=== PATIENT | female | born 1935 | race Caucasian/White ===

== ENCOUNTER → 2019-12-09 11:06 | Outpatient (CLI) | payer MEDICARE, BC, SELFPAY ==
--- NOTE | ~2019-12-09 | MM_ITS ---
EXAMINATION: MM screening [facility] BI w jayant HISTORY: Screening mammogram TECHNIQUE: Craniocaudal and mediolateral oblique 3-D tomosynthesis images were obtained and synthetic 2-D images were generated. CAD analysis was submitted and interpreted. COMPARISON: 11/28/2018, 11/08/2018, 02/18/2016, 02/10/2016 BREAST PARENCHYMAL COMPOSITION: There are scattered areas of fibroglandular density. FINDINGS: There is no evidence of suspicious mass, calcification, or architectural distortion to sugg est malignancy in either breast. There has been no suspicious interval change. IMPRESSION: 1. No mammographic evidence of malignancy. 2. Recommend routine screening mammography in one year. BI-RADS Category 1: Negative Reviewed, dictated and finalized at location A. ES OPERATOR
== END ==
PROVIDERS: PCP Internal Medicine; Visit Provider Internal Medicine
DX: Z12.31 Encounter for screening mammogram for malignant neoplasm of breast (principal)
CPT/HCPCS: 77063; 77067

== ENCOUNTER 2020-07-08 07:55 | Outpatient (CLI) | payer MEDICARE, BC, SELFPAY ==
--- NOTE | ~2020-07-08 | CT_ITS ---
EXAMINATION: CT lumbar spine wo con DATE: 07/08/2020 09:05 INDICATION: Low back pain. TECHNIQUE: Computed tomography (CT) of the lumbar spine was performed without intravenous contrast. A utomated exposure control and iterative reconstruction technique were employed. The dose-length produ ct was 463.39 mGy-cm. COMPARISON: CT lumbar spine 09/13/2018 FINDINGS: There is 30 degrees dextroscoliosis of thoracolumbar spine. Vertebral body heights are norm al. There is moderately decreased disc height at T12-L1, severely decreased disc height at L1-L2, L2- L3, and L3-L4, moderately decreased disc height at L4-L5, and severely decreased disc height at L5-S1 . The following disc levels are specifically discussed: L1-L2: The disc is bulging. There is severe bilateral facet joint osteoarthritis. There is mild bilat eral neural foraminal stenosis. There is mild central canal stenosis. L2-L3: The disc is bulging. There is severe right and mild left facet joint osteoarthritis. There is mild right and moderate left neural foraminal stenosis. There is mild central canal stenosis. L3-L4: The disc is bulging. There is severe right and mild left facet joint osteoarthritis. There is mild bilateral neural foraminal stenosis. There is mild central canal stenosis. L4-L5: The disc is bulging. There is severe bilateral facet joint osteoarthritis. There is mild bilat eral neural foraminal stenosis. There is mild central canal stenosis. L5-S1: The disc is bulging. There is severe bilateral facet joint osteoarthritis. There is moderate b ilateral neural foraminal stenosis. There is mild central canal stenosis. IMPRESSION: 1. Severe lumbar spondylosis, stable from 09/13/2018. 2. Thoracolumbar dextroscoliosis. Reviewed, dictated and finalized at location A.
--- NOTE | ~2020-07-08 | US_ITS ---
EXAMINATION: US art doppler w press LE BI DATE: 07/08/2020 08:53 INDICATION: Peripheral arterial occlusive disease with calf pain TECHNIQUE: Segmental pressures and plethysmographic and Doppler waveforms of the brachial and lower e xtremity arteries were obtained. COMPARISON: None. FINDINGS: Right and left brachial artery pressures of 114 mm Hg and 106 mm Hg, respectively, are concordant (no rmal difference <= 30 mmHg). The right and left high-thigh pressure indices are 1.33 and 1.32, respec tively (normal > 1.2). The right ankle-brachial index (POLLO) is 1.11 (normal >= 0.9-1). The right great toe-brachial index (T BI) is 0.99 (normal >= 0.6-0.8). The right lower extremity segmental pressure gradients are normal (n ormal gradients <= 20-30 mmHg between adjacent levels on the same leg or the same levels on the two l egs). Arterial waveforms are biphasic with brisk systolic upstrokes throughout. The left POLLO is 1.23. The left TBI is 1.04. The left lower extremity segmental pressure gradients are normal. Arterial waveforms are biphasic with brisk systolic upstrokes throughout. IMPRESSION: 1. Normal ABIs and TBI's bilaterally. No significant occlusive disease. Reviewed, dictated and finalized at location B.
== END 2020-07-08 07:56 | disposition home or self-care (01) ==
PROVIDERS: PCP Internal Medicine; Visit Provider Psychiatry & Neurology Neurology
DX: G83.4 Cauda equina syndrome (principal); M47.896 Other spondylosis, lumbar region; I73.9 Peripheral vascular disease, unspecified
CPT/HCPCS: 72131; 93923

== ENCOUNTER 2020-07-12 09:49 | Emergency (ER) | payer MEDICARE, BC, SELFPAY ==
[2020-07-12 09:55] VITALS: BP 119/70; PULSE 79; RESP 12; TEMP 36.3; O2SAT 98
--- NOTE | 2020-07-12 10:29 | ED.EYEPROB ---
HPI - Eye Problem General Chief complaint: Eye Problems Stated complaint: eye irritation Source: patient and RN notes reviewed Limitations: no limitations History of Present Illness HPI Narrative: The patient, who wears eyeglasses/not contacts, presents with eye redness. Patient states she is not on blood thinners or antiplatelets, including aspirin; she now has a shorter 1 day history upon awakening of left eye redness nasally/medially. No foreign body, discharge, photophobia, fever, bleeding diathesis/bruising; no loss of taste/smell, cough, shortness of breath, rash, vomiting/diarrhea Related Data Home Medications Medication Instructions Recorded Confirmed calcium carbonate-vitamin D3 600 1 tablet PO DAILY 10/21/19 07/12/20 mg (1,500 mg)-800 unit tablet acetaminophen [Tylenol] 650 mg PO QID 07/12/20 07/12/20 clorazepate dipotassium 7.5 mg PO HS 07/12/20 07/12/20 diphenhydramine-acetaminophen 2 tablet PO HS PRN 07/12/20 07/12/20 [Tylenol PM Extra Strength] multivitamin [Daily Multi-Vitamin] 1 tablet PO DAILY 07/12/20 07/12/20 Allergies Allergy/AdvReac Type Severity Reaction Status Date / Time Quinolones Allergy Intermediate HIVES AND Unverified 07/12/20 10:20 JOINT PAIN levofloxacin Allergy Unknown Other Verified 07/12/20 10:20 nitrofurantoin Allergy Unknown Other Verified 07/12/20 10:20 sulfamethizole Allergy Unknown Other Verified 07/12/20 10:20 sulfamethoxazole Allergy Unknown Other Verified 07/12/20 10:20 trimethoprim Allergy Unknown Other Verified 07/12/20 10:20 NITRATE Allergy Intermediate HIVES AND Uncoded 07/12/20 10:20 JOINT PAIN ARTHRITIS MED AdvReac Unknown Other Uncoded 07/12/20 10:20 Review of Systems Review of Systems: Narrative: At time of signature, agree with nursing past medical, surgical, social and family history. There is no relevant family history pertinent to the presenting complaint [facility] Social History Social History Smoking status: Former smoker Smoking end date: 11/05/82 Alcohol intake: current Comments General/Constitutional: No weight loss,fever Eyes: ++ Redness,no discharge Ears/Nose/Throat: No: Epistaxis,ear discharge Respiratory: Denies: Hemoptysis Gastrointestinal: No Vomiting, Bleeding-rectal Skin: No Lumps, eruption Neurologic: No Focal Weakness,Sz Hematologic: Denies: Petechiae/Purpura Psychiatric: No: Suicida ideationl All Other Systems: Reviewed and Negative Exam Narrative: Exam Narrative: General Appearance: Well appearing, Well nourished, No distress EYE: Medial/nasal sub-conjunctival blood , PERRLA, Catl-fbmczcgo-hxlygi normal, EOMI, Normal corneas ,Anterior chamber deep, Conjunctiva injection Ears: External ear normal, Auditory canal normal Nose: Normal nose, Nares clear Mouth/Throat: Normal appearing, Normal lips Neck: Supple, No adenopathy Respiratory: Airway patent, No respiratory distress Skin: Warm, Dry Neurological: A&O x3, CN II-X intact Psychiatric: Normal mood, Normal affect Course Vital Signs Vital signs: Vital Signs Temperature 97.3 F L 07/12/20 09:55 Pulse Rate 79 07/12/20 09:55 Respiratory Rate 12 07/12/20 09:55 Blood Pressure 119/70 07/12/20 09:55 Pulse Oximetry 98 07/12/20 09:55 Temperature 97.3 F L 07/12/20 09:55 Pulse Rate 79 07/12/20 09:55 Respiratory Rate 12 07/12/20 09:55 Blood Pressure 119/70 07/12/20 09:55 Pulse Oximetry 98 07/12/20 09:55 Discharge Plan Discharge Clinical Impression: Subconjunctival hemorrhage of left eye Patient Disposition: Home, Self-Care Condition: Stable Instructions: Subconjunctival Hemorrhage (ED) Prescriptions: New bacitracin 500 unit/gram ointment 1 applic EACH EYE DAILY Qty: 3.5 RF: 0 No Action acetaminophen [Tylenol] 325 mg Tablet 650 mg PO QID RF: 0 multivitamin [Daily Multi-Vitamin] Tablet 1 tablet PO DAILY RF: 0 clorazepate dipotassiu
== END 2020-07-12 10:40 | disposition home or self-care (01) ==
PROVIDERS: Emergency Provider Emergency Medicine; PCP Internal Medicine
DX: H11.32 Conjunctival hemorrhage, left eye (principal); Z87.891 Personal history of nicotine dependence
CPT/HCPCS: 99213; G0463

== ENCOUNTER 2020-08-12 13:36 | Outpatient (CLI) | payer MEDICARE, BC, SELFPAY ==
--- NOTE | 2020-08-12 14:30 | NEURO_ITS ---
Patient Number: [id number] Impression: # Complains of numbness of lower extremities. # Normal nerve conduction study including F-waves, motor and sensory nerves. # Normal needle/EMG exam without any neurogenic changes. # Clinical correlation recommended; Problem could be related to small fiber neuropathy. Nerve Conduction Studies Anti Sensory Summary Table Stim Site NR Peak (ms) P-T Amp (?V) Site1 Site2 Delta-P (ms) Dist (cm) Marvin (m/s) Left Sup Fibular Anti Sensory (Ant Lat Mall) 14 cm 3.4 16.4 14 cm Ant Lat Mall 3.4 16.0 47 Right Sup Fibular Anti Sensory (Ant Lat Mall) 14 cm 3.8 24.0 14 cm Ant Lat Mall 3.8 16.0 42 Left Sural Anti Sensory (Lat Mall) Calf 3.6 12.9 Calf Lat Mall 3.6 16.0 44 Right Sural Anti Sensory (Lat Mall) Calf 3.8 19.3 Calf Lat Mall 3.8 16.0 42 Motor Summary Table Stim Site NR Onset (ms) O-P Amp (mV) Site1 Site2 Delta-0 (ms) Dist (cm) Marvin (m/s) Left Peroneal Motor (Vastus Med) Ankle 4.7 1.0 Popit Ankle 8.3 38.0 46 Popit 13.0 0.8 Right Peroneal Motor (Vastus Med) Ankle 4.1 3.6 Popit Ankle 7.1 35.0 49 Popit 11.2 3.2 Left Tibial Motor (Abd Isbell Brev) Ankle 4.7 0.8 Knee Ankle 8.4 42.0 50 Knee 13.1 0.4 Right Tibial Motor (Abd Isbell Brev) Ankle 4.8 2.0 Knee Ankle 7.3 40.0 55 Knee 12.1 1.8 F Wave Studies NR F-Lat (ms) L-R F-Lat (ms) Left Peroneal (Mrkrs) (EDB) 46.17 0.12 Right Peroneal (Mrkrs) (EDB) 46.05 0.12 Left Tibial (Mrkrs) (Abd Hallucis) 48.25 1.04 Right Tibial (Mrkrs) (Abd Hallucis) 47.22 1.04 EMG Side Muscle Nerve Root Ins Act Fibs Amp Dur Recrt Comment Right AntTibialis Dp Br Fibular L4-5 Nml Nml Nml Nml Nml Right Gastroc Tibial S1-2 Nml Nml Nml Nml Nml Right Fibularis Long Sup Br Fibular L5-S1 Nml Nml Nml Nml Nml Right Flex Dig Long Tibial L5-S2 Nml Nml Nml Nml Nml Right Ext Dig Brev Dp Br Fibular L5, S1 Nml Nml Nml Nml Nml Left AntTibialis Dp Br Fibular L4-5 Nml Nml Nml Nml Nml Left Gastroc Tibial S1-2 Nml Nml Nml Nml Nml Left Fibularis Long Sup Br Fibular L5-S1 Nml Nml Nml Nml Nml Left Flex Dig Long Tibial L5-S2 Nml Nml Nml Nml Nml Left Ext Dig Brev Dp Br Fibular L5, S1 Nml Nml Nml Nml Nml Right QuadratusFem QuadFemoris L4-5, S1 Nml Nml Nml Nml Nml Left QuadratusFem QuadFemoris L4-5, S1 Nml Nml Nml Nml Nml Right Ext Dig Long Dp Br Fibular L5-S1 Nml Nml Nml Nml Nml Right PostTibialis Tibial L5, S1 Nml Nml Nml Nml Nml Left Ext Dig Long Dp Br Fibular L5-S1 Nml Nml Nml Nml Nml Left PostTibialis Tibial L5, S1 Nml Nml Nml Nml Nml MTDD
== END 2020-08-12 13:37 | disposition home or self-care (01) ==
PROVIDERS: PCP Internal Medicine; Visit Provider Psychiatry & Neurology Neurology
DX: G62.9 Polyneuropathy, unspecified (principal)
CPT/HCPCS: 95886; 95910

== ENCOUNTER → 2021-03-25 10:59 | Outpatient (CLI) | payer MEDICARE, BC, SELFPAY ==
--- NOTE | ~2021-03-25 | DEXA_ITS ---
Bone Density Report Name: Tena Seymour Age: 86 Sex: Female Ethnicity: White Date of : 1935 Indication: postmenopausal; screening for osteoporosis; height loss; Referring Provider: BRANDEN CHAUHAN Study: Bone densitometry was performed. Exam Date: March 25, 2021 Accession number: [id number] Bone Density: Region BMD T-score Z-score Classification AP Spine (L1-L4) 1.009 -0.3 2.5 Normal Femoral Neck (Left) 0.606 -2.2 0.3 Osteopenia Total Hip (Left) 0.839 -0.8 1.4 Normal World Health Organization criteria for BMD impression classify patients as: Normal (T-score at or above -1.0), Osteopenia (T-score between -1.0 and -2.5), or Osteoporosis (T-score at or below -2.5). 10-year Fracture Risk(1): Major Osteoporotic Fracture 16% Hip Fracture 5.2% Reported Risk Factors: [place] (), Neck BMD=0.606, BMI=28.3 (1) FRAX(R) Version 3.08. Fracture probability calculated for an untreated patient. Fracture probability may be lower if the patient has received treatment. Previous Exams: Region Exam Age BMD T-score BMD Change BMD Change Date g/cm2 vs Baseline vs Previous AP Spine(L1-L4) 03/25/2021 86 1.009 -0.3 0.034 -0.041* 11/08/2018 83 1.050 0.0 0.075 0.048* 02/04/2015 79 1.001 -0.4 0.027 0.031* 11/04/2012 77 0.970 -0.7 -0.004 0.024* 10/25/2011 76 0.946 -0.9 -0.028 -0.029* 10/18/2010 75 0.975 -0.7 0.001 -0.026* 09/25/2008 73 1.001 -0.4 0.027 0.026* 09/23/2007 72 0.975 -0.7 0.001 -0.011 09/29/2005 70 0.986 -0.6 0.012 0.012 10/24/2002 67 0.974 -0.7 Total Hip(Left) 03/25/2021 86 0.839 -0.8 -0.081 -0.010 11/08/2018 83 0.849 -0.8 -0.071 0.024 02/04/2015 79 0.825 -1.0 -0.095 0.015 11/04/2012 77 0.810 -1.1 -0.110 -0.033* 10/25/2011 76 0.843 -0.8 -0.077 0.040* 10/18/2010 75 0.804 -1.1 -0.116 -0.094* 09/25/2008 73 0.897 -0.4 -0.022 -0.031* 09/23/2007 72 0.928 -0.1 0.008 0.011 09/28/2004 69 0.917 -0.2 -0.003 -0.003 10/24/2002 67 0.920 -0.2 *Denotes significance at 95% confidence level, LSC for AP Spine = 0.022 g/cm2, LSC for Total Hip = 0.027 g/cm2 Clinical Information Provided by Patient: Has used the following medications: Vitamin D, Calcium Pat
--- NOTE | ~2021-03-25 | MM_ITS ---
EXAMINATION: MM screening ap BI w jayant HISTORY: Screening TECHNIQUE: Craniocaudal and mediolateral oblique 3-D tomosynthesis images were obtained and synthetic 2-D images were generated. CAD analysis was submitted and interpreted. COMPARISON: Comparison to multiple prior studies sequentially, with oldest reviewed study dated 12/2014. BREAST PARENCHYMAL COMPOSITION: The breasts are heterogenously dense, which may obscure small masses. FINDINGS: The right breast is stable without evidence for malignancy. There is developing asymmetry i n the upper outer quadrant of the left breast. IMPRESSION: 1. Developing left breast asymmetry. 2. Additional mammographic views and possible breast ultrasound are recommended. BI-RADS Category 0: Incomplete: Needs additional imaging evaluation. Reviewed, dictated and finalized at location A. IMPRESSION: 1. Developing left breast asymmetry. 2. Additional mammographic views and possible breast ultrasound are recommended . BI-RADS Category 0: Incomplete: Needs additional imaging evaluation.
== END ==
PROVIDERS: Visit Provider Obstetrics & Gynecology Gynecology
DX: Z12.31 Encounter for screening mammogram for malignant neoplasm of breast (principal); Z78.0 Asymptomatic menopausal state; R92.8 Other abnormal and inconclusive findings on diagnostic imaging of breast; M85.852 Other specified disorders of bone density and structure, left thigh
CPT/HCPCS: 77063; 77067; 77080

== ENCOUNTER → 2021-04-27 09:28 | Outpatient (CLI) | payer MEDICARE, BC, SELFPAY ==
--- NOTE | ~2021-04-27 | MMUS_ITS ---
EXAMINATION: MM diagnostic ap LT w jayant, US breast LT limited HISTORY: Developing left breast asymmetry in upper outer quadrant reported on 03/25/2021 screening [facility] mogram TECHNIQUE: Additional 3-D tomosynthesis images of the left breast were performed and synthetic 2-D im ages were generated. CAD analysis was submitted and interpreted. High resolution upper outer and lowe r-outer left breast ultrasound was performed. COMPARISON: 03/25/2021 bilateral digital screening mammogram FINDINGS: MAMMOGRAPHIC FINDINGS: No suspicious mass, architectural distortion, malignant calcification, skin thickening or retraction is evident. ULTRASOUND: There is imaging of the lateral half of left breast reveals no suspicious mass or shadowing or other significant sonographic finding. IMPRESSION: 1. No mammographic evidence of malignancy 2. Routine mammographic screening is recommended. BI-RADS Category 1: Negative Reviewed, dictated and finalized at location A. IMPRESSION: 1. No mammographic evidence of malignancy 2. Routine mammographic screening is recommended. BI-RADS Category 1: Negative
== END ==
PROVIDERS: PCP Internal Medicine; Visit Provider Obstetrics & Gynecology Gynecology
DX: R92.8 Other abnormal and inconclusive findings on diagnostic imaging of breast (principal)
CPT/HCPCS: 76642; 77061; 77065; G0279

== ENCOUNTER 2021-05-06 06:42 | Outpatient (CLI) | payer MEDICARE, BC, SELFPAY ==
--- NOTE | ~2021-05-06 | CT_ITS ---
EXAMINATION: CT lumbar spine wo con DATE: 05/06/2021 06:59 INDICATION: Low back pain. Right hip pain. Scoliosis. TECHNIQUE: Computed tomography (CT) of the lumbar spine was performed without intravenous contrast. A utomated exposure control and iterative reconstruction technique were employed. The dose-length produ ct was 642.28 mGy-cm. COMPARISON: CT lumbar spine 07/08/2020 FINDINGS: There is 31 degrees dextroscoliosis of thoracolumbar spine. Vertebral body heights are norm al. There is mildly decreased disc height at T12-L1, severely decreased disc height from L1-L2 throug h L3-L4, moderately decreased disc height at L4-L5, and severely decreased disc height at L5-S1 with endplate remodeling. The following disc levels are specifically discussed: L1-L2: The disc is bulging. There is severe bilateral facet joint osteoarthritis. There is mild left neural foraminal stenosis. There is mild central canal stenosis. L2-L3: The disc is bulging. There is severe right and mild left facet joint osteoarthritis. There is moderate bilateral neural foraminal stenosis. There is mild central canal stenosis. L3-L4: The disc is bulging. There is severe bilateral facet joint osteoarthritis. There is mild bilat eral neural foraminal stenosis. There is mild central canal stenosis. L4-L5: The disc is bulging. There is severe bilateral facet joint osteoarthritis. There is mild bilat eral neural foraminal stenosis. There is mild central canal stenosis. L5-S1: The disc is bulging. There is severe bilateral facet joint osteoarthritis. There is moderate b ilateral neural foraminal stenosis. There is mild central canal stenosis. IMPRESSION: 1. Severe lumbar spondylosis, stable from 07/08/2020. 2. Thoracolumbar dextroscoliosis. Reviewed, dictated and finalized at location A.
== END 2021-05-06 06:43 | disposition home or self-care (01) ==
LOC: ANHIMG 06:42
PROVIDERS: PCP Internal Medicine
DX: M41.9 Scoliosis, unspecified (principal); M47.817 Spondylosis without myelopathy or radiculopathy, lumbosacral region
CPT/HCPCS: 72131

== ENCOUNTER 2021-06-08 13:56 | Emergency (ER) | payer MEDICARE, BC, SELFPAY ==
--- NOTE | ~2021-06-08 | XR_ITS ---
EXAMINATION: XR chest 2V DATE: 06/08/2021 14:28 INDICATION: Cough and congestion TECHNIQUE: PA and lateral views of the chest are obtained. COMPARISON: None available FINDINGS: The lungs are free of acute opacities. There is no pleural effusion or pneumothorax. The ca rdiomediastinal silhouette is normal. Thoracolumbar dextroscoliosis is noted. IMPRESSION: 1. No acute cardiopulmonary abnormality. Reviewed, dictated and finalized at location A.
[2021-06-08 13:57] VITALS: BP 147/60; PULSE 100; RESP 18; TEMP 36.1; O2SAT 98
[2021-06-08 14:52] VITALS: O2SAT 99
--- NOTE | 2021-06-08 15:06 | ED.URI ---
HPI - URI/Sore Throat General Chief Complaint: Upper Respiratory Infection Stated Complaint: cough Time Seen by Provider: 06/08/21 14:33 Source: patient and RN notes reviewed Mode of arrival: ambulatory Limitations: no limitations History of Present Illness HPI Narrative: This is an 86 year old female who presents for evaluation of cough and runny nose. She states last night she woke up sweaty. She has continued to have intermittent episodes of chills and hot flashes. She also reports cough, headache and runny nose. She is concerned that she may have covid. She is vaccinated but she does go to [facility]. She denies chest pain, abdominal pain, shortness of breath, vomiting , focal weakness. Related Data Home Medications Medication Instructions Recorded Confirmed calcium carbonate-vitamin D3 600 1 tablet PO DAILY 10/21/19 04/18/21 mg (1,500 mg)-800 unit tablet diphenhydramine-acetaminophen 2 tablet PO HS PRN 07/12/20 04/18/21 [Tylenol PM Extra Strength] multivitamin [Daily Multi-Vitamin] 1 tablet PO DAILY 07/12/20 04/18/21 acetaminophen 325 mg tablet 650 mg PO .prn PRN tablet 02/03/21 04/18/21 Allergies Allergy/AdvReac Type Severity Reaction Status Date / Time Quinolones Allergy Intermediate HIVES AND Verified 06/08/21 16:15 JOINT PAIN levofloxacin Allergy Unknown Other Verified 07/12/20 10:20 nitrofurantoin Allergy Unknown Other Verified 07/12/20 10:20 sulfamethizole Allergy Unknown Other Verified 07/12/20 10:20 sulfamethoxazole Allergy Unknown Other Verified 07/12/20 10:20 trimethoprim Allergy Unknown Other Verified 07/12/20 10:20 NITRATE Allergy Intermediate HIVES AND Uncoded 07/12/20 10:20 JOINT PAIN ARTHRITIS MED AdvReac Unknown Other Uncoded 07/12/20 10:20 Review of Systems Review of Systems: All systems reviewed & are unremarkable except as noted in HPI and below Constitutional: Constitutional: Reports chills and Reports fever(s) (subjective) ENT: Reports headache(s), Reports nasal discharge and Denies sore throat Comments: sneezing Cardiovascular: Cardiovascular: Denies chest pain Respiratory: Respiratory: Reports cough and Denies dyspnea Gastrointestinal: Gastrointestinal: Denies abdominal pain, Reports diarrhea, Denies nausea and Denies vomiting Genitourinary: Genitourinary: Denies hematuria, Denies dysuria and Denies flank pain Musculoskeletal: Musculoskeletal: Denies back pain Neurologic: Reports headache(s) [facility] Past Medical History Medical History (Updated 06/08/21 @ 16:15 by Madai Grady MD) Hyperlipidemia Vitamin D deficiency Surgical History Surgical History (Updated 06/08/21 @ 15:07 by Madai Grady MD) History of left knee replacement Family History Family History Father Family history of congenital heart disease Mother Family history of arthritis Family history of lupus erythematosus Other Cerebrovascular accident Family history of cardiovascular disease Family history of gout Family history of neuropathy Family history of osteoporosis Hypertension Social History Social History Smoking status: Former smoker Second hand tobacco smoke exposure: No Smoking end date: 11/05/82 Alcohol intake: current Drinks per week: 7 Alcohol use details: wine,daily Substance use: never Substance use type: does not use Exam Const: General: no acute distress and alert Orientation/consciousness: patient oriented x3 Eyes: Pupils: Equal, round and reactive pupils present EOM: EOMs intact bilaterally Chest: Chest palpation & inspection: normal inspection of the chest Resp: Effort & Inspection: normal respiratory effort and no retractions Auscultation: clear to auscultation bilaterally Cardio: Rate: regular rate Rhythm: regular rhythm Heart sounds: no murmurs GI: GI Palp: Yes Soft to palpation, No
[2021-06-08 15:39] LABS: Add Urine Microscopic? YES; Appearance Urine Cloudy (Clear); Bacteria Urine Trace /hpf; Bilirubin Urine Negative (Negative); Blood Urine Negative (Negative); Color Urine Yellow (Yellow); Glucose Urine UA Negative (Negative); Hyaline Casts Urine 20-29 /lpf; Ketones Urine Trace mg/dL (Negative); Leukocyte Esterase Ur 1+ LEU/UL (Negative); Mucus Urine Heavy /lpf; Nitrate Urine Positive (Negative); Protein Urine 1+ mg/dL (Negative); Specific Grav Ur 1.015 (1.001-1.035); Squamous Epithelial Cell Urine Few /hpf (Few); Urobilinogen Urine Negative mg/dL (<2.0); WBC Urine 31-50 /hpf
[2021-06-08 15:42] LABS: Basophils Percent Auto 0.5 % (0.2-1.2); Hematocrit 42.2 % (37.0-47.0); Hemoglobin 13.8 g/dL (12.0-15.0); Immature Granulocyte Absolute 0.01 K/mm3 (0.00-0.031); Immature Granulocyte Percent A 0.2 % (0-0.5); Lymphocytes Absolute Auto 1.46 K/mm3 (0.9-3.2); Lymphocytes Percent Auto 23.1 % (18.3-44.2); Mean Corpuscular HGB Conc 32.7 g/dl (32-36); Mean Corpuscular Hemoglobin 30.6 pg (26-34); Mean Corpuscular Volume 93.6 fl (80-100); Mean Platelet Volume 8.7 fl (7.4-10.4); Monocytes Absolute Auto 0.6 K/mm3 (0.1-0.6); Neutrophils Absolute Auto 4.2 K/mm3 (1.3-6.7); Neutrophils Percent Auto 66.2 % (45.5-73.1); Platelet Count Result 233 k/mm3 (150-375); Red Blood Count 4.51 M/mm3 (4.2-5.4); White Blood Count 6.3 K/mm3 (4.5-10.0)
[2021-06-08 15:50] VITALS: BP 143/73; PULSE 71; RESP 14; O2SAT 99
[2021-06-08 15:53] LABS: Alanine Aminotransferase 17 U/L (4-35); Albumin Level 4.6 g/dL (3.5-5.1); Alkaline Phosphatase 75 U/L (38-126); Anion Gap 10 mmol/L (8-16); Aspartate Amino Transferase 34 U/L (14-36); Bilirubin,Total 0.3 mg/dL (0.2-1.3); Blood Urea Nitrogen 15 mg/dL (7-17); Calcium 9.8 mg/dL (8.4-10.2); Carbon Dioxide 25 mmol/L (22-30); Chloride 101 mmol/L (98-107); Estimated CRCL calculation 42 ml/min; Estimated Glomerular Filt Rate > 60; Glucose 117 mg/dL (65-110); Potassium 3.8 mmol/L (3.4-5.0); Sodium 136 mmol/L (137-145)
[2021-06-08 16:35] VITALS: BP 136/73; PULSE 72; RESP 12; O2SAT 99
[2021-06-09 18:47] LABS: SARS-CoV-2 RNA PCR Negative
== END 2021-06-08 16:35 | disposition home or self-care (01) ==
PROVIDERS: Emergency Provider General Practice; PCP Internal Medicine
DX: N39.0 Urinary tract infection, site not specified (principal); Z20.822 Contact with and (suspected) exposure to COVID-19; E78.5 Hyperlipidemia, unspecified; E55.9 Vitamin D deficiency, unspecified; Z96.652 Presence of left artificial knee joint; Z87.891 Personal history of nicotine dependence
CPT/HCPCS: 36415; 71046; 80053; 81001; 85025; 87077; 87086; 87088; 87186; 87804; 96365; 99284; C9803; J0696; U0003; U0005

== ENCOUNTER 2022-07-12 16:37 | Inpatient (IN) | payer MEDICARE, BC, SELFPAY ==
[2022-07-12] VITALS (7 sets, daily range): BP systolic 98–169; BP diastolic 47–79; PULSE 101–108; RESP 16–27; TEMP 36.3–36.8; O2SAT 95–100; BMI 27.6
--- NOTE | ~2022-07-12 | XR_ITS ---
EXAMINATION: XR chest 2V Exam Date/Time: 07/12/2022 17:55 CDT HISTORY: WEAKNESS, FALL TODAY, NO CHEST COMPLAINTS Comparison: 06/08/2021. RESULT: Lines, tubes, and devices: None. Lungs and pleura: Apical pleural thickening. Left midlung scarring. Senescent change. Cardiomediastinal silhouette: Stable. Other: No acute osseous or upper abdominal finding. Severe scoliosis. IMPRESSION: No acute cardiopulmonary process. Reviewed, dictated and finalized at location [facility].
--- NOTE | ~2022-07-12 | CT_ITS ---
EXAMINATION: CT brain wo con DATE: 07/12/2022 20:23 INDICATION: Fell out of bed and lateral on 0444 hours. Weakness. TECHNIQUE: Computed tomography (CT) of the head was performed without intravenous contrast. The mA wa s adjusted according to patient size. Iterative reconstruction technique was employed. Exam dose: 60 5.33 mGy-cm total exam DLP. COMPARISON: None FINDINGS: Bilateral carotid siphon internal carotid artery calcifications. There is nonspecific dimin ished attenuation of the cerebral white matter, likely due to chronic small vessel ischemic changes. There is cerebral and cerebellar volume loss. There is a ventricular prominence. No intracranial mass lesion or hemorrhage, midline shift or mass effect effect. No subdural or epidur al hematoma. Orbital contents are unremarkable. Very small fluid level in the dependent left maxillary sinus. The paranasal sinuses and mastoid air c ells are otherwise unremarkable. No fracture or bone destruction of the cranial vault. IMPRESSION: Cerebral atherosclerosis and chronic small vessel ischemic changes of cerebral white mat ter Central and cortical cerebral and cerebellar atrophy No acute intracranial finding Reviewed, dictated and finalized at Location [facility]. Reviewed, dictated and finalized at location A. IMPRESSION: Cerebral atherosclerosis and chronic small vessel ischemic changes of cerebral white matter Central and cortical cerebral and cerebellar atrophy No acute intracranial finding
--- NOTE | 2022-07-12 16:46 | ECG_ITS ---
Measurements Intervals [place] Rate: 106 P: 35 [place]: 157 QRS: -11 QRSD: 82 T: -10 QT: 332 QTc: 442 Interpretive Statements SINUS TACHYCARDIA ATRIAL PREMATURE COMPLEX LOW QRS VOLTAGE IN PRECORDIAL LEADS VOLTAGE CRITERIA FOR LVH CONSIDER INFERIOR INFARCT, AGE INDETERMINATE BORDERLINE ST-T WAVE ABNORMALITY- ANTEROLATERAL LEADS ABNORMAL ECG NO PREVIOUS ECG AVAILABLE FOR COMPARISON Electronically Signed On 07-12-2022 19:21:06 CDT by Mazin Crockett D.O.
[2022-07-12 17:08] LABS: Basophils Percent Auto 0.3 % (0.2-1.2); Hematocrit 38.3 % (37.0-47.0); Hemoglobin 12.6 g/dL (12.0-15.0); Immature Granulocyte Absolute 0.04 K/mm3 (0.00-0.031); Immature Granulocyte Percent A 0.5 % (0-0.5); Lymphocytes Absolute Auto 0.52 K/mm3 (0.9-3.2); Lymphocytes Percent Auto 6.8 % (18.3-44.2); Mean Corpuscular HGB Conc 32.9 g/dl (32-36); Mean Corpuscular Hemoglobin 31.1 pg (26-34); Mean Corpuscular Volume 94.6 fl (80-100); Mean Platelet Volume 9.2 fl (7.4-10.4); Monocytes Absolute Auto 0.6 K/mm3 (0.1-0.6); Monocytes Percent Auto 8.2 % (2.6-8.5); Neutrophils Absolute Auto 6.5 K/mm3 (1.3-6.7); Neutrophils Percent Auto 84.2 % (45.5-73.1); Platelet Count Result 214 k/mm3 (150-375); Red Blood Count 4.05 M/mm3 (4.2-5.4); Red Cell Distribution Width 14.1 % (11.5-14.5); White Blood Count 7.7 K/mm3 (4.5-10.0)
[2022-07-12 17:18] LABS: Alanine Aminotransferase 382 U/L (6-35); Albumin Level 4.3 g/dL (3.5-5.1); Alkaline Phosphatase 217 U/L (38-126); Anion Gap 14 mmol/L (8-16); Aspartate Amino Transferase 286 U/L (14-36); Bilirubin,Total 0.6 mg/dL (0.2-1.3); Blood Urea Nitrogen 25 mg/dL (7-17); Calcium 8.7 mg/dL (8.4-10.2); Carbon Dioxide 22 mmol/L (22-30); Chloride 102 mmol/L (98-107); Estimated CRCL calculation 35 ml/min; Estimated Glomerular Filt Rate 60; Glucose 148 mg/dL (65-110); Potassium 3.5 mmol/L (3.4-5.0); Sodium 138 mmol/L (137-145)
[2022-07-12 20:59] LABS: Appearance Urine Slightly Cloudy (Clear); Bilirubin Urine 1+ (Negative); Blood Urine 3+ (Negative); Color Urine Yellow (Yellow); Glucose Urine UA Negative (Negative); Ketones Urine 3+ mg/dL (Negative); Leukocyte Esterase Ur 3+ LEU/UL (Negative); Nitrate Urine Positive (Negative); Protein Urine 2+ mg/dL (Negative); Specific Grav Ur 1.025 (1.001-1.035); Urobilinogen Urine 0.2 mg/dL (<2.0); pH Urine 5.5 (5.0-9.0)
--- NOTE | 2022-07-12 21:01 | ED.WEAKNESS ---
HPI - Weakness General Chief complaint: Weakness Stated complaint: memory issues, not feeling well. Time Seen by Provider: 07/12/22 20:09 Source: patient Mode of arrival: ambulatory Limitations: other (poor historian) History of Present Illness HPI Narrative: This is a 87 year old female that presents to the ER for generalized weakness. Reports this morning she went to get out of bed and slid onto the floor. Reports she was on the floor for a couple of hours before she was able to get back up. Does not report any localizing symptoms at this time. Denies fever, chest pain, shortness of breath, abdominal pain, vomiting or dysuria. Related Data Home Medications Medication Instructions Recorded Confirmed calcium carbonate 600 mg-vitamin 1 tablet PO DAILY 10/21/19 10/20/21 D3 20 mcg (800 unit) tablet (Caltrate with Vitamin D3) multivitamin (Daily Multi-Vitamin 1 tablet PO DAILY 07/12/20 10/20/21 tablet) acetaminophen 325 mg tablet 650 mg PO .prn PRN pain 02/03/21 10/20/21 (Tylenol) Allergies Allergy/AdvReac Type Severity Reaction Status Date / Time Quinolones Allergy Intermediate HIVES AND Verified 05/26/22 09:13 JOINT PAIN levofloxacin Allergy Unknown Other Verified 05/26/22 09:13 nitrofurantoin Allergy Unknown Other Verified 05/26/22 09:13 sulfamethizole Allergy Unknown Other Verified 05/26/22 09:13 sulfamethoxazole Allergy Unknown Other Verified 05/26/22 09:13 trimethoprim Allergy Unknown Other Verified 05/26/22 09:13 NITRATE Allergy Intermediate HIVES AND Uncoded 05/26/22 08:38 JOINT PAIN ARTHRITIS MED AdvReac Unknown Other Uncoded 05/26/22 08:38 Review of Systems Review of Systems: CONSTITUTIONAL: Denies fever, CARDIOVASCULAR: Denies chest pain, or edema. RESPIRATORY: Denies dyspnea. GASTROINTESTINAL: Denies abdominal pain, nausea, vomiting, or diarrhea. GENITOURINARY: Denies dysuria NEUROLOGIC: Reports generalized weakness. All systems reviewed & are unremarkable except as noted in HPI and below PMFSH Past Medical History Medical History Hyperlipidemia Vitamin D deficiency Surgical History Surgical History History of left knee replacement Family History Family History Father Family history of congenital heart disease Mother Family history of arthritis Family history of lupus erythematosus Other Cerebrovascular accident Family history of cardiovascular disease Family history of gout Family history of neuropathy Family history of osteoporosis Hypertension Social History Social History Smoking status: Former smoker Second hand tobacco smoke exposure: No Smoking end date: 11/05/82 Alcohol intake: current Drinks per week: 7 Alcohol use details: wine,daily Substance use: never Substance use type: does not use Exam Narrative: GENERAL: Well-appearing, well-nourished, and in no acute distress. HEAD: Normocephalic, atraumatic. EYES: PERRLA and EOMI. ENT: Nares clear, no rhinorrhea or epistaxis. Mucous membranes moist. Oropharynx without tonsillar hypertrophy exudate or other lesions. NECK: Supple. No adenopathy or masses. CHEST: Clear to auscultation. No respiratory distress. No wheezes rales or rhonchi HEART: Regular rate and rhythm. No murmur heard. Normal peripheral pulses. ABDOMEN: Soft, nontender, nondistended, normal active bowel sounds. EXTREMITIES: Normal range of motion. No edema or obvious deformity. SKIN: Warm, dry, no rash. NEURO: No focal deficits. Alert and oriented x3. PSYCH: Normal mood and affect Course Consultations Consultation #1: Spoke with hospitalist about patient and work-up who accepts admission Date: 07/12/22 Vital Signs Vital signs: Vital Signs Temperature 97.3 F L 07/12/22 16:41 Pulse Rate 108 H 09/0
[2022-07-12 21:08] LABS: Lipase 144 U/L (23-300)
[2022-07-12 21:09] LABS: Bacteria Urine 1+ /hpf; Mucus Urine Heavy /lpf; RBC Urine 21-50 /hpf (0-2); Squamous Epithelial Cell Urine Occasional /hpf (Few); WBC Clumps Urine Present /HPF; WBC Urine >75 /hpf
[2022-07-12 21:11] LABS: Add Urine Microscopic? YES
[2022-07-12 21:17] LABS: INR 1.1; Prothrombin Time 13.2 Seconds (11.1-14.7)
[2022-07-12 21:18] LABS: Partial Thromboplastin Time 28.7 SECONDS (22.3-36.8)
[2022-07-12] MEDS: SODIUM CHLORIDE 0.9% IV 500 ML 999 ML IV CONT (21:20)
[2022-07-12 21:21] LABS: Creatine Kinase 3829 U/L (30-135)
--- NOTE | 2022-07-12 21:42 | PM.IMHP ---
H&P: HPI History of Present Illness Date/Time: 07/12/22 21:42 Chief Complaint: Fall Narrative: THIS IS AN 87-YEAR-OLD FEMALE WITH PAST MEDICAL HISTORY SIGNIFICANT FOR DYSLIPIDEMIA, OSTEOPOROSIS, CHRONIC PAIN, SPINAL STENOSIS, PATIENT PRESENTS TO THE EMERGENCY ROOM AFTER SHE HAD A FALL WHILE GETTING OUT OF BED LAY ON THE FLOOR FOR 2 HOURS AFTER SHE WAS UNABLE TO GET BACK UP SOMEHOW WAS ABLE TO REACH HER PHONE AND CALLED A FRIEND WHO GIVE HER SOME INSTRUCTIONS ABOUT HOW TO GET BACK UP AND SHE WAS ABLE TO GET UP LATER ON SHE TOLD A STORY TO HER FAMILY MEMBER AND DECIDED TO COME TO THE EMERGENCY ROOM PATIENT HAS BEEN FEELING WEAK HAS HAD SOME CHILLS AND SOME DISCOMFORT WITH URINATION. NO LOSS OF CONSCIOUSNESS, NO SYNCOPE, NO NEAR SYNCOPE, NO LIGHTHEADEDNESS, NO SHORTNESS OF BREATH, NO COUGH, NO CHEST PAIN, NO LEG SWELLING. PRELIMINARY WORKUP WAS SIGNIFICANT FOR URINALYSIS WITH NUMEROUS WBCS PRESENT A CPK WAS ELEVATED A CHEST X-RAY WAS CLEAR. PATIENT IS BEEN ADMITTED FOR FURTHER EVALUATION MANAGEMENT AND TREATMENT. Review of Systems Review of Systems: FALL Constitutional: Constitutional: Reports chills, Reports fatigue and Reports lethargy Eyes: Eyes: Denies change in vision ENT: Denies dysphagia, Denies vertigo, Denies dizziness and Denies odynophagia Cardiovascular: Cardiovascular: Denies chest pain, Denies pedal edema, Denies irregular heart rhythm, Denies leg edema, Denies lightheadedness, Denies palpitations and Denies dyspnea on exertion Respiratory: Respiratory: Denies change in phlegm color, Denies chest congestion, Denies cough, Denies excessive phlegm production, Denies pain on inspiration, Denies dyspnea and Denies dyspnea on exertion Gastrointestinal: Gastrointestinal: Denies abdominal pain, Denies dyspepsia, Denies heartburn, Denies diarrhea, Denies nausea and Denies vomiting Genitourinary: Genitourinary: Reports dysuria Musculoskeletal: Musculoskeletal: Reports muscle weakness and Reports other (FALL) Integumentary/Breasts: Skin/Breast: Denies rash Neurologic: Denies vertigo, Denies dizziness, Denies focal weakness, Denies Sensory deficit (Neuro) and Denies weakness Psychiatric: Psychiatric: Reports no additional psychiatric complaints and Reports as per HPI Endocrine: Endocrine: Denies cold intolerance, Denies fatigue, Denies flushing, Denies heat intolerance, Denies polyphagia, Denies polydipsia and Denies palpitations Hematologic/Lymphatic: Hematologic/Lymphatic: Reports no additional hematologic/lymphatic complaints and Reports as per HPI Allergic/Immunologic: Allergic/Immunologic: Reports no additional allergic/immunologic complaints and Reports as per HPI PMFSH Past Medical History Medical History Hyperlipidemia Vitamin D deficiency Surgical History Surgical History History of left knee replacement Family History Family History (Updated 07/12/22 @ 23:14 by Radha Victoria, GABRIEL) Father Family history of congenital heart disease Cerebrovascular accident Family history of cardiovascular disease Family history of gout Hypertension Mother Family history of arthritis Family history of lupus erythematosus Other Family history of neuropathy Family history of osteoporosis Social History Social History Smoking status: Former smoker Second hand tobacco smoke exposure: No Alcohol intake: current Drinks per week: 5 Alcohol use details: wine,daily Substance use: never Substance use type: does not use Spiritual care concerns: No Meds Home Medications and Allergies Home Medications Medication Instructions Recorded Confirmed Type calcium carbonate 600 mg-vitamin 1 tablet PO DAILY 10/21/19 07/13/22 History D3 20 mcg (800 unit) tablet (Caltrate with Vitamin D3) multivitamin (Daily Multi-Vitamin 1
[2022-07-12] MEDS: SODIUM CHLORIDE 0.9% IV 1,000 ML 999 ML IV CONT (22:05)
--- NOTE | 2022-07-12 23:01 | ADMGEN ---
This patient, Tena Seymour, was admitted to 2 Medical Room 258-01. Patient/family oriented to hospital policies and general routines including ID bracelet, bed and alarms, visiting hours, pain management, procedures, bathroom and other care routines, personal items, smoking policy, room service/diet, and visiting hours. Information on how to activate the Rapid Response Team has been discussed. Patient/Family are encouraged to report perceived risks to care and to ask questions if they do not understand what they are told or what they should do.
--- NOTE | 2022-07-12 23:56 | PC.NURSE ---
Attempted to do medication list with patient, but patient unaware of the doses. Pt states she has a list in her purse. Jenni Alfredo, patient's niece took purse home with her. Will attempt to call Jenni in the morning.
--- NOTE | 2022-07-13 00:06 | PC.NURSE ---
0000 SPOKE WITH PT NIECE WHO HAS PT MEDICATION LIST TO COMPLETE MED REC. PT NIECE STATE PT IS A POOR HISTORIAN WHO IS VERY FORGETFUL. THE HAVE HAD PT ASSESSED FOR MEMORY ISSUES IN THE PAST BUT NO DIAGNOSIS. FAMILY WOULD LIKE TO SPEAK WITH CARE COORDINATION FOR PT PLACEMENT.
[2022-07-13 01:08] VITALS: PULSE 99; RESP 16; O2SAT 95
[2022-07-13 05:50] VITALS: BP 130/88; PULSE 111; RESP 18; TEMP 36.7; O2SAT 94
[2022-07-13] MEDS: MULTIVITAMINS THERAPEUTIC TAB (*BKC) 1 TABLET PO (08:23)
[2022-07-13] MEDS: ATORVASTATIN 10 MG TABLET PO (08:23)
[2022-07-13] MEDS: MELOXICAM 7.5 MG TABLET PO (08:23)
[2022-07-13] MEDS: PREGABALIN (*CRX) 75 MG CAPSULE 150 MG PO ×2 (08:26→20:23)
[2022-07-13 08:30] VITALS: RESP 18; O2SAT 94
[2022-07-13 09:11] LABS: Creatine Kinase 3103 U/L (30-135)
--- NOTE | 2022-07-13 09:13 | PM.IMPN ---
Progress Note: A&P Assessment and Plan (1) Fall: Code(s): W19.XXXA - Unspecified fall, initial encounter Status: Acute (2) Rhabdomyolysis: Qualifiers: Rhabdomyolysis type: non-traumatic Qualified Code(s): M62.82 - Rhabdomyolysis Code(s): M62.82 - Rhabdomyolysis Status: Acute (3) Acute UTI: Code(s): N39.0 - Urinary tract infection, site not specified Status: Acute Plan 07/13/22 cont IVFs serial cpk Rocephin for UTI (last 2 cultures sensitive to Rocephin) UCx pending will adjust abx PRN cont supportive care PT/OT Subjective Date/time seen: 07/13/22 09:13 slipped from edge of bed to floor and then could not get up pt is AAOX3 but poor historian denies LOC presyncopal sxs complaint is weakness, was seen by neuro for LE weakness but unable to give any more history Review of Systems Review of Systems: All systems reviewed & are unremarkable except as noted in HPI and below Objective Data Vital Signs Vital Signs: Vital Signs - 24 hr 07/12/22 16:41 07/12/22 20:40 07/12/22 19:42 Temperature 97.3 F L Pulse Rate 108 H 104 H 106 H Respiratory Rate 16 22 H Blood Pressure 98/47 L 169/75 H Pulse Oximetry 95 100 Oxygen Delivery Room Air 07/12/22 20:38 07/12/22 21:05 07/12/22 21:31 Temperature Pulse Rate 107 H 101 H 106 H Respiratory Rate 24 H 27 H 22 H Blood Pressure 154/73 H 146/71 H 139/79 Pulse Oximetry 99 95 95 Oxygen Delivery 07/12/22 22:47 07/13/22 00:00 07/13/22 01:08 Temperature 98.3 F Pulse Rate 108 H 99 Respiratory Rate 20 16 Blood Pressure 125/75 Pulse Oximetry 97 95 Oxygen Delivery Room Air Autopap 07/13/22 05:50 07/13/22 08:30 Temperature 98.1 F Pulse Rate 111 H Respiratory Rate 18 18 Blood Pressure 130/88 Pulse Oximetry 94 94 Oxygen Delivery Room Air Intake/Output Intake/Output: Intake & Output 07/10/22 07/11/22 07/12/22 07/13/22 23:59 23:59 23:59 23:59 Intake Total 550 630 Output Total 200 Balance 550 430 Meds/Results Medications: Active Medications Generic Name Dose Route Start Last Admin Trade Name Kingsley PRN Reason Stop Dose Admin Acetaminophen 650 mg 07/13/22 01:11 Acetaminophen 325 Mg Tablet PO Q6H PRN Pain Rated 1-3 Atorvastatin Calcium 10 mg 07/13/22 09:00 07/13/22 08:23 Atorvastatin 10 Mg Tablet PO 10 mg DAILY LAURA Administration Calcium Carbonate 500 mg 07/13/22 09:00 07/13/22 08:23 Calcium/Vitamin D 500 Mg Tablet PO 500 mg QAM LAURA Administration Ceftriaxone Sodium/Dextrose 1 gm in 50 mls @ 100 mls/hr 07/13/22 21:00 Rocephin 1 Gm/D5w 50 Ml IVPB Q24H LAURA Sodium Chloride 250 mls @ 100 mls/hr 07/13/22 08:25 Normal Saline Iv IV CONT 07/13/22 10:54 .Q2H30M ONE Meloxicam 7.5 mg 07/13/22 08:00 07/13/22 08:23 Meloxicam 7.5 Mg Tablet PO 7.5 mg DAILY@0800 LAURA Administration Multivitamins Therapeutic 1 tablet 07/13/22 09:00 07/13/22 08:23 Multivitamins Therapeutic Tab (*Bkc) PO 1 tablet DAILY LAURA Administration Pregabalin 150 mg 07/13/22 09:00 07/13/22 08:26 Pregabalin (*Crx) 75 Mg Capsule PO 150 mg Q12HR LAURA Administration Tramadol HCl 50 mg 07/13/22 01:11 Tramadol Hcl (*Crx) 50 Mg Tablet PO BID PRN Pain Rated 4-6 Radiology Results: ITS Impressions Chest X-Ray 07/12/22 18:05 IMPRESSION: No acute cardiopulmonary process. Head CT 07/12/22 20:24 IMPRESSION: Cerebral atherosclerosis and chronic small vessel ischemic changes of cerebral white matter Central and cortical cerebral and cerebellar atrophy No acute intracranial finding Labs Labs: Laboratory Results - last 24 hr 07/12/22 07/12/22 07/12/22 16:56 16:56 16:58 WBC 7.7 RBC 4.05 L Hgb 12.6 Hct 38.3 MCV 94.6 MCH 31.1 MCHC 32.9 RDW 14.1 Plt Count 214 MPV 9.2 Immature Gran % (Auto) 0.5 Neut % (Auto) 84.2 H Lymph % (Auto) 6
[2022-07-13] MEDS: SODIUM CHLORIDE 0.9% IV 250 ML 100 ML IV CONT (09:33)
[2022-07-13 14:10] VITALS: BP 123/60; PULSE 99; RESP 16; TEMP 36.4; O2SAT 95
[2022-07-13] MEDS: traMADol HCL (*CRX) 50 MG TABLET PO (20:22)
[2022-07-13 20:38] VITALS: PULSE 87; RESP 19; O2SAT 95
[2022-07-13 20:57] VITALS: BP 135/70; PULSE 87; RESP 18; TEMP 36.7; O2SAT 96
[2022-07-14 05:38] VITALS: BP 147/80; PULSE 87; RESP 18; TEMP 36.9; O2SAT 100
[2022-07-14 08:36] VITALS: RESP 18; O2SAT 100
[2022-07-14] MEDS: MULTIVITAMINS THERAPEUTIC TAB (*BKC) 1 TABLET PO (08:36)
[2022-07-14] MEDS: ATORVASTATIN 10 MG TABLET PO (08:36)
[2022-07-14] MEDS: MELOXICAM 7.5 MG TABLET PO (08:36)
[2022-07-14] MEDS: PREGABALIN (*CRX) 75 MG CAPSULE 150 MG PO ×2 (08:36→20:29)
[2022-07-14] MEDS: traMADol HCL (*CRX) 50 MG TABLET PO (08:42)
--- NOTE | 2022-07-14 09:16 | PM.IMPN ---
Progress Note: A&P Assessment and Plan (1) Fall: Code(s): W19.XXXA - Unspecified fall, initial encounter Status: Acute (2) Acute metabolic encephalopathy: Code(s): G93.41 - Metabolic encephalopathy Status: Acute (3) Acute UTI: Code(s): N39.0 - Urinary tract infection, site not specified Status: Acute (4) Rhabdomyolysis: Qualifiers: Rhabdomyolysis type: non-traumatic Qualified Code(s): M62.82 - Rhabdomyolysis Code(s): M62.82 - Rhabdomyolysis Status: Acute Plan 07/13/22 cont IVFs serial cpk Rocephin for UTI (last 2 cultures sensitive to Rocephin) UCx pending will adjust abx PRN cont supportive care PT/OT 07/14/22 pt doing better today cont Rocephin cont supportive care am labs pending UCx pending anticipate dc home w [facility] Subjective Date/time seen: 07/14/22 09:16 feeling better up in chair more alert better historian, worked w PT does not qualify for [facility] Review of Systems Review of Systems: All systems reviewed & are unremarkable except as noted in HPI and below Objective Data Vital Signs Vital Signs: Vital Signs - 24 hr 07/13/22 14:10 07/13/22 20:57 07/13/22 20:00 Temperature 97.5 F L 98.0 F Pulse Rate 99 87 Respiratory Rate 16 18 Blood Pressure 123/60 135/70 Pulse Oximetry 95 96 Oxygen Delivery Room Air 07/13/22 20:38 07/14/22 05:38 07/14/22 07:45 Temperature 98.5 F Pulse Rate 87 87 Respiratory Rate 19 18 Blood Pressure 147/80 H Pulse Oximetry 95 100 Oxygen Delivery Autopap Room Air 07/14/22 07:58 Temperature Pulse Rate Respiratory Rate Blood Pressure Pulse Oximetry Oxygen Delivery Room Air Intake/Output Intake/Output: Intake & Output 07/11/22 07/12/22 07/13/22 07/14/22 23:59 23:59 23:59 23:59 Intake Total 550 1290 720 Output Total 500 Balance 550 790 720 Meds/Results Medications: Active Medications Generic Name Dose Route Start Last Admin Trade Name Freq PRN Reason Stop Dose Admin Acetaminophen 650 mg 07/13/22 01:11 Acetaminophen 325 Mg Tablet PO Q6H PRN Pain Rated 1-3 Atorvastatin Calcium 10 mg 07/13/22 09:00 07/14/22 08:36 Atorvastatin 10 Mg Tablet PO 10 mg DAILY LAURA Administration Calcium Carbonate 500 mg 07/13/22 09:00 07/14/22 08:36 Calcium/Vitamin D 500 Mg Tablet PO 500 mg QAM LAURA Administration Ceftriaxone Sodium/Dextrose 1 gm in 50 mls @ 100 mls/hr 07/13/22 21:00 07/13/22 20:53 Rocephin 1 Gm/D5w 50 Ml IVPB Infused Q24H LAURA Infusion Meloxicam 7.5 mg 07/13/22 08:00 07/14/22 08:36 Meloxicam 7.5 Mg Tablet PO 7.5 mg DAILY@0800 [facility] Administration Multivitamins Therapeutic 1 tablet 07/13/22 09:00 07/14/22 08:36 Multivitamins Therapeutic Tab (*Bkc) PO 1 tablet DAILY LAURA Administration Pregabalin 150 mg 07/13/22 09:00 07/14/22 08:36 Pregabalin (*Crx) 75 Mg Capsule PO 150 mg Q12HR LAURA Administration Tramadol HCl 50 mg 07/13/22 01:11 07/14/22 08:42 Tramadol Hcl (*Crx) 50 Mg Tablet PO 50 mg BID PRN Administration Pain Rated 4-6 Radiology Results: ITS Impressions Chest X-Ray 07/12/22 18:05 IMPRESSION: No acute cardiopulmonary process. Head CT 07/12/22 20:24 IMPRESSION: Cerebral atherosclerosis and chronic small vessel ischemic changes of cerebral white matter Central and cortical cerebral and cerebellar atrophy No acute intracranial finding
[2022-07-14 09:33] LABS: Hematocrit 38.1 % (37.0-47.0); Hemoglobin 12.7 g/dL (12.0-15.0); Mean Corpuscular HGB Conc 33.3 g/dl (32-36); Mean Corpuscular Hemoglobin 31.1 pg (26-34); Mean Corpuscular Volume 93.2 fl (80-100); Mean Platelet Volume 9.2 fl (7.4-10.4); Platelet Count Result 175 k/mm3 (150-375); Red Blood Count 4.09 M/mm3 (4.2-5.4); White Blood Count 5.3 K/mm3 (4.5-10.0)
[2022-07-14] MEDS: SODIUM CHLORIDE 0.9% IV 1,000 ML 100 ML IV CONT ×2 (09:40→19:03)
[2022-07-14 09:54] LABS: Alanine Aminotransferase 200 U/L (6-35); Albumin Level 3.9 g/dL (3.5-5.1); Alkaline Phosphatase 184 U/L (38-126); Anion Gap 13 mmol/L (8-16); Aspartate Amino Transferase 159 U/L (14-36); Bilirubin,Total 0.4 mg/dL (0.2-1.3); Blood Urea Nitrogen 13 mg/dL (7-17); Calcium 8.4 mg/dL (8.4-10.2); Carbon Dioxide 24 mmol/L (22-30); Chloride 100 mmol/L (98-107); Estimated CRCL calculation 50 ml/min; Estimated Glomerular Filt Rate > 60; Glucose 182 mg/dL (65-110); Potassium 3.5 mmol/L (3.4-5.0); Sodium 137 mmol/L (137-145)
[2022-07-14 10:03] LABS: Creatine Kinase 2574 U/L (30-135)
[2022-07-14 14:10] VITALS: BP 121/6; PULSE 89; RESP 16; TEMP 36.5; O2SAT 98
[2022-07-14 19:29] VITALS: BP 132/62; PULSE 77; RESP 17; TEMP 36.9; O2SAT 96
[2022-07-14 21:07] VITALS: PULSE 69; RESP 16; O2SAT 98
[2022-07-15 02:12] VITALS: PULSE 72; RESP 17; O2SAT 96
[2022-07-15 03:26] VITALS: BP 140/59; PULSE 86; RESP 18; TEMP 36.6; O2SAT 97
[2022-07-15] MEDS: SODIUM CHLORIDE 0.9% IV 1,000 ML 100 ML IV CONT (04:11)
[2022-07-15] MEDS: traMADol HCL (*CRX) 50 MG TABLET PO (05:12)
--- NOTE | 2022-07-15 08:01 | PM.DS ---
DS: Admitting Diagnosis Discharge Date 07/15/22 Admitting Diagnosis (1) Acute UTI: ?Code(s): N39.0 - Urinary tract infection, site not specified ? ? ? (2) Rhabdomyolysis: ?Qualifiers: ?Rhabdomyolysis type:?non-traumatic? Qualified Code(s):?M62.82 - Rhabdomyolysis ?Code(s): M62.82 - Rhabdomyolysis ? ? (3) Fall: ?Code(s): W19.XXXA - Unspecified fall, initial encounter (4) Degenerative lumbar spinal stenosis: ?Code(s): M48.061 - Spinal stenosis, lumbar region without neurogenic claudication ? ? (5) Gait disturbance: ?Code(s): R26.9 - Unspecified abnormalities of gait and mobility (6) Generalized osteoarthritis: ?Code(s): M15.9 - Polyosteoarthritis, unspecified ? DS: Discharge Diagnosis Discharge Diagnosis (1) Fall: Code(s): W19.XXXA - Unspecified fall, initial encounter Status: Acute (2) Acute metabolic encephalopathy: Code(s): G93.41 - Metabolic encephalopathy Status: Acute (3) Acute UTI: Code(s): N39.0 - Urinary tract infection, site not specified Status: Acute (4) Rhabdomyolysis: Qualifiers: Rhabdomyolysis type: non-traumatic Qualified Code(s): M62.82 - Rhabdomyolysis Code(s): M62.82 - Rhabdomyolysis Status: Acute (5) E-coli UTI: Code(s): N39.0 - Urinary tract infection, site not specified; B96.20 - Unspecified Escherichia coli [E. coli] as the cause of diseases classified elsewhere Status: Acute DS: Summary Hospital Course Reason for hospitalization: Chief Complaint: Fall Narrative: ?THIS IS AN 87-YEAR-OLD FEMALE WITH PAST MEDICAL HISTORY SIGNIFICANT FOR DYSLIPIDEMIA, OSTEOPOROSIS, CHRONIC PAIN, SPINAL STENOSIS, PATIENT PRESENTS TO THE EMERGENCY ROOM AFTER SHE HAD A FALL WHILE GETTING OUT OF BED LAY ON THE FLOOR FOR 2 HOURS AFTER SHE WAS UNABLE TO GET BACK UP SOMEHOW WAS ABLE TO REACH HER PHONE AND CALLED A FRIEND WHO GIVE HER SOME INSTRUCTIONS ABOUT HOW TO GET BACK UP AND SHE WAS ABLE TO GET UP LATER ON SHE TOLD A STORY TO HER? FAMILY MEMBER AND DECIDED TO COME TO THE EMERGENCY ROOM PATIENT HAS BEEN FEELING WEAK HAS HAD SOME CHILLS AND SOME DISCOMFORT WITH URINATION.? NO LOSS OF CONSCIOUSNESS, NO SYNCOPE, NO NEAR SYNCOPE, NO LIGHTHEADEDNESS, NO SHORTNESS OF BREATH, NO COUGH, NO CHEST PAIN, NO LEG SWELLING.? PRELIMINARY WORKUP WAS SIGNIFICANT FOR URINALYSIS WITH NUMEROUS WBCS PRESENT A CPK WAS ELEVATED A CHEST X-RAY WAS CLEAR.? PATIENT IS BEEN ADMITTED FOR FURTHER EVALUATION MANAGEMENT AND TREATMENT. Hospital Course: 07/12/22 ?PATIENT STARTED ON ROCEPHIN ?CULTURES IN PROGRESS ?DEESCALATE ANTIBIOTICS NEEDED ?SUPPORTIVE CARE ?IV FLUIDS ?CONTINUE TO MONITOR ?PT OT CONSULT ?FALL PRECAUTIONS ?UNCHANGED ?LIKELY SECONDARY TO ACUTE ILLNESS WITH GENERALIZED MUSCLE WEAKNESS ?PT OT CONSULT ?CONTINUE HOME MEDS 07/13/22 cont IVFs serial cpk Rocephin for UTI (last 2 cultures sensitive to Rocephin) UCx pending will adjust abx PRN cont supportive care PT/OT 07/14/22 pt doing better today cont Rocephin cont supportive care am labs pending UCx pending anticipate dc home w [facility] 07/15/22 pt is medically stable for dc home w [facility] she has completed 3 days for her E coli UTI, pt has allergy to quinolones and was given 3 additional days keflex. Unfortunately, sensitivities returned resistant to this abx. Her abx will be changed to the only available PO alternative Doxycycline Status at Discharge Overall status at discharge: patient is not back to baseline Time Spent with Patient Time attestation: Total time spent providing and/or coordinating discharge services: DS: Data Data Completed and Pending Labs on day of discharge: Labs from last 24 hours 07/14/22 07/14/22 07/14/22 09:25 09:25 09:25 WBC 5.3 RBC 4.09 L Hgb 12.7 Hct 38.1 MCV 93.2 MCH 31.1 MCHC 33.3 RDW 14.0 Plt Count 175 MPV 9.2 Sodium 137 Potassium 3.5 Chloride 100 Carbon Dioxide 24
[2022-07-15 08:30] LABS: Creatine Kinase 1399 U/L (30-135)
[2022-07-15] MEDS: MELOXICAM 7.5 MG TABLET PO (08:51)
[2022-07-15] MEDS: MULTIVITAMINS THERAPEUTIC TAB (*BKC) 1 TABLET PO (08:51)
[2022-07-15] MEDS: PREGABALIN (*CRX) 75 MG CAPSULE 150 MG PO (08:51)
[2022-07-15] MEDS: ATORVASTATIN 10 MG TABLET PO (08:51)
== END 2022-07-15 14:29 | disposition home or self-care (01) | DRG 689 ==
LOC: ANHED 20:12 → ANH2MED 22:31
PROVIDERS: Emergency Medicine; Physician Assistant; Admitting Provider Internal Medicine; Emergency Provider Preventive Medicine Aerospace Medicine; PCP Family Medicine; Visit Provider Hospitalist
DX: N39.0 Urinary tract infection, site not specified (principal); G93.41 Metabolic encephalopathy; M62.82 Rhabdomyolysis; Z16.19 Resistance to other specified beta lactam antibiotics; B96.20 Unspecified Escherichia coli [E. coli] as the cause of diseases classified elsewhere; W06.XXXA Fall from bed, initial encounter; M48.061 Spinal stenosis, lumbar region without neurogenic claudication; R26.9 Unspecified abnormalities of gait and mobility; M15.9 Polyosteoarthritis, unspecified; E78.5 Hyperlipidemia, unspecified; E55.9 Vitamin D deficiency, unspecified; M81.0 Age-related osteoporosis without current pathological fracture; Z96.652 Presence of left artificial knee joint; Z87.891 Personal history of nicotine dependence
CPT/HCPCS: 36415; 70450; 71046; 80053; 81001; 82550; 83690; 85025; 85027; 85610; 85730; 87077; 87086; 87186; 93005; 96365; 97161; 97165; 99285; A9270; G0378; J0696; J7030; J7040; J7050

== ENCOUNTER 2022-08-04 08:19 | Outpatient (CLI) | payer MEDICARE, BC, SELFPAY ==
[2022-08-04 21:00] LABS: Alanine Aminotransferase 24 U/L (6-35); Albumin Level 4.2 g/dL (3.5-5.1); Alkaline Phosphatase 123 U/L (38-126); Anion Gap 8 mmol/L (8-16); Aspartate Amino Transferase 38 U/L (14-36); Bilirubin,Total 0.5 mg/dL (0.2-1.3); Blood Urea Nitrogen 35 mg/dL (7-17); Calcium 10.1 mg/dL (8.4-10.2); Carbon Dioxide 27 mmol/L (22-30); Chloride 104 mmol/L (98-107); Cholesterol 201 mg/dL (0-200); Estimated Glomerular Filt Rate 60; Glucose 88 mg/dL (65-110); HDL Direct 68 mg/dL; Potassium 4.4 mmol/L (3.4-5.0); Sodium 139 mmol/L (137-145); Triglycerides 137 mg/dL (<150)
[2022-08-04 21:11] LABS: LDL Cholesterol Direct 92 mg/dL
[2022-08-04 21:49] LABS: Hemoglobin A1C 5.3 % (<5.7)
== END 2022-08-04 08:20 | disposition home or self-care (01) ==
PROVIDERS: PCP Family Medicine; Visit Provider Family Medicine
DX: E78.00 Pure hypercholesterolemia, unspecified (principal); Z13.228 Encounter for screening for other metabolic disorders; R73.01 Impaired fasting glucose
CPT/HCPCS: 36415; 80053; 80061; 83036

== ENCOUNTER 2022-09-10 11:13 | Emergency (ER) | payer MEDICARE, BC, SELFPAY ==
--- NOTE | ~2022-09-10 | XR_ITS ---
XR chest 2V DATE: 09/10/2022 12:00 INDICATION: Cough, shortness of breath TECHNIQUE: PA and lateral views COMPARISON: 07/12/2022 PA and lateral chest FINDINGS: Cardiomegaly. Aortic calcification. No hilar or mediastinal enlargement is detected. Mild discoid atelectasis or scarring in the lateral left mid and lower lung and right lung base. No pulmonary infiltrate or consolidation, pleural effusion or pulmonary vascular congestion or pneumo thorax is detected. Mild to moderate hiatal hernia is suggested. Prominent dextroscoliosis of the thoracic or lumbar spine. Diffuse osteopenia. IMPRESSION: Cardiomegaly, aortic atherosclerosis No pulmonary consolidation Osteopenia Thoracolumbar dextroscoliosis Reviewed, dictated and finalized at location A. OLOGY CT TECHNOLOGIST
--- NOTE | 2022-09-10 11:17 | ED.URI ---
HPI - URI/Sore Throat General Chief Complaint: Upper Respiratory Infection Stated Complaint: COUGH/SINUS/EYES BURNING/SOB Time Seen by Provider: 09/10/22 11:17 Source: patient and RN notes reviewed History of Present Illness HPI Narrative: Patient is an 87-year-old female who presents to the Urgent Care with her daughter with complaints of persistent worsening shortness of breath, burning in bilateral eyes, sinus pressure and cough. Patient states that it started on Sunday and she has been taking Tylenol and Tussin DM that she received from a friend. Patient has not seen a provider or spoke to her doctor about her current symptoms. Patient states her symptoms seem to be worsening daily. Denies of any chest pain but states that she does have chest congestion. Patient denies any ill exposures. Denies any known fevers, nausea or vomiting. No other acute complaints. No acute distress noted. Patient aware of the plan of care. Some parts of this dictation were generated by voice recognition software and may contain typographical and/or grammatical inaccuracies. Related Data Home Medications Medication Instructions Recorded Confirmed calcium carbonate 600 mg-vitamin 1 tablet PO DAILY 10/21/19 09/10/22 D3 20 mcg (800 unit) tablet (Caltrate with Vitamin D3) multivitamin (Daily Multi-Vitamin 1 tablet PO DAILY 07/12/20 09/10/22 tablet) acetaminophen 325 mg tablet 650 mg PO .prn PRN pain 02/03/21 09/10/22 (Tylenol) diclofenac sodium 1 % topical gel 2 g topical QID 09/10/22 09/10/22 omeprazole 40 mg capsule,delayed 40 mg PO DAILY 09/10/22 09/10/22 release risedronate 150 mg tablet (Actonel) 150 mg PO ONCE 09/10/22 09/10/22 Allergies Allergy/AdvReac Type Severity Reaction Status Date / Time Quinolones Allergy Intermediate HIVES AND Verified 09/10/22 11:20 JOINT PAIN levofloxacin Allergy Unknown Other Verified 09/10/22 11:20 nitrofurantoin Allergy Unknown Other Verified 09/10/22 11:20 sulfamethizole Allergy Unknown Other Verified 09/10/22 11:20 sulfamethoxazole Allergy Unknown Other Verified 09/10/22 11:20 trimethoprim Allergy Unknown Other Verified 09/10/22 11:20 NITRATE Allergy Intermediate HIVES AND Uncoded 09/10/22 11:20 JOINT PAIN ARTHRITIS MED AdvReac Unknown Other Uncoded 09/10/22 11:20 Review of Systems Review of Systems: CONSTITUTIONAL: Denies fever, chills, or sweats. EYES: Reports a burning to bilateral eyes ENT: Reports of sinus congestion, postnasal drainage CARDIOVASCULAR: Denies chest pain, palpitations, or edema. RESPIRATORY: Reports of cough with intermittent dyspnea GASTROINTESTINAL: Denies abdominal pain, nausea, vomiting, or diarrhea. GENITOURINARY: Denies dysuria or hematuria. SKIN: Denies rash or itching. MUSCULOSKELETAL: Denies back pain, joint pain, or myalgia. NEUROLOGIC: Denies headache, numbness, or weakness. All other systems reviewed are negative, except as documented in HPI. [facility] Past Medical History Medical History Hyperlipidemia Vitamin D deficiency Surgical History Surgical History History of left knee replacement Family History Family History Father Family history of congenital heart disease Cerebrovascular accident Family history of cardiovascular disease Family history of gout Hypertension Mother Family history of arthritis Family history of lupus erythematosus Other Family history of neuropathy Family history of osteoporosis Social History Social History Smoking status: Former smoker Second hand tobacco smoke exposure: No Alcohol intake: current Drinks per week: 5 Alcohol use details: wine,daily Substance use: never Substance use type: does not use Spiritual care concerns: No Comments At the time of my sign
[2022-09-10 11:27] VITALS: BP 123/72; PULSE 107; RESP 18; TEMP 36.6; O2SAT 96
== END 2022-09-10 13:00 | disposition home or self-care (01) ==
PROVIDERS: Emergency Provider Nurse Practitioner Family; PCP Family Medicine
DX: J06.9 Acute upper respiratory infection, unspecified (principal); N39.0 Urinary tract infection, site not specified; E78.5 Hyperlipidemia, unspecified; Z87.891 Personal history of nicotine dependence; Z20.822 Contact with and (suspected) exposure to COVID-19
CPT/HCPCS: 71046; 81003; 87077; 87086; 87186; 87426; 87804; 99213; C9803; G0463

== ENCOUNTER → 2022-09-14 13:27 | Outpatient (CLI) | payer MEDICARE, BC, SELFPAY ==
--- NOTE | ~2022-09-14 | MM_ITS ---
EXAMINATION: MM screening ap BI w jayant HISTORY: Screening mammogram TECHNIQUE: Craniocaudal and mediolateral oblique 3-D tomosynthesis images were obtained and synthetic 2-D images were generated. CAD analysis was submitted and interpreted. COMPARISON: 04/27/2021 diagnostic left mammogram and limited left breast ultrasound 03/25/2021, 12/2019 bilateral screening mammogram examinations BREAST PARENCHYMAL COMPOSITION: There are scattered areas of fibroglandular density. FINDINGS: Possible 5 x 6.4 mm mass in the mid to posterior outer left breast (craniocaudal Tomosynthe sis image 18/62). Recommend diagnostic right mammogram, with ultrasound if required. Otherwise there is no evidence of suspicious mass, calcification, or architectural distortion to sugg est malignancy in either breast. There has been no other suspicious interval change. IMPRESSION: 1. Possible 5 x 6.4 mm mass in the mid to posterior aspect of outer left breast on craniocaudal view 2. Diagnostic right mammogram is recommended, with ultrasound if required BI-RADS Category 0: Incomplete: Needs additional imaging evaluation. Reviewed, dictated and finalized at location A. BLOWER
== END ==
PROVIDERS: PCP Family Medicine; Visit Provider Obstetrics & Gynecology Gynecology
DX: Z12.31 Encounter for screening mammogram for malignant neoplasm of breast (principal); R92.8 Other abnormal and inconclusive findings on diagnostic imaging of breast
CPT/HCPCS: 77063; 77067

== ENCOUNTER → 2022-10-09 08:37 | Outpatient (CLI) | payer MEDICARE, BC, SELFPAY ==
--- NOTE | ~2022-10-09 | MMUS_ITS ---
EXAMINATION: MM diagnostic ap RT w jayant, US breast RT limited HISTORY: Possible right breast mass on screening mammogram TECHNIQUE: Additional 3-D tomosynthesis images of the right breast were performed and synthetic 2-D i mages were generated. CAD analysis was submitted and interpreted. High resolution limited right breas t ultrasound was performed. COMPARISON: 09/14/2022, 03/25/2021, 12/09/2019 FINDINGS: MAMMOGRAPHIC FINDINGS: A 6 mm oval, obscured, low density masses present in the middle third breast at the 9:00 location 5 c m from the nipple. No suspicious calcification or architectural distortion are identified. ULTRASOUND: There is a 6 mm cyst at the 9:00 location 4 cm from the nipple. An adjacent 4 mm cyst is also noted a t the same location. There is a 5 mm cyst at the 7:00 location 4 cm from the nipple. IMPRESSION: 1. No mammographic or sonographic evidence of malignancy. 2. Recommend annual screening mammography while the patient remains in good health. BI-RADS Category 2: Benign finding(s). Reviewed, dictated and finalized at location A. TICS SPREADING MACHINE OPERATOR IMPRESSION: 1. No mammographic or sonographic evidence of malignancy. 2. Recommend annual screening mammography while the patient remains in good hea lth. BI-RADS Category 2: Benign finding(s).
== END ==
PROVIDERS: PCP Family Medicine; Visit Provider Obstetrics & Gynecology Gynecology
DX: R92.8 Other abnormal and inconclusive findings on diagnostic imaging of breast (principal)
CPT/HCPCS: 76642; 77061; 77065; G0279

== ENCOUNTER 2022-11-02 11:31 | Inpatient (IN) | payer MEDICARE, BC, SELFPAY ==
[2022-11-02] VITALS (7 sets, daily range): BP systolic 134–162; BP diastolic 66–92; PULSE 80–110; RESP 15–24; TEMP 36.5–36.9; O2SAT 95–98; BMI 26.6
--- NOTE | ~2022-11-02 | XR_ITS ---
Supine view of the abdomen Clinical history: Abdominal pain Findings: Bowel gas pattern is nonspecific. No evidence for obstruction or free air. No abnormal mass lesion or calcification is seen. Mild degenerative changes of the lumbar spine noted. Right hip arth roplasty present. Impression: No significant abnormality is seen. Reviewed, dictated and finalized at [facility]. N MANAGER Impression: No significant abnormality is seen.
--- NOTE | ~2022-11-02 | CT_ITS ---
CT head without contrast Indication: Confusion COMPARISON: 07/12/2022 Technique: Serial scans were obtained through the brain without the administration of contrast. Dose reduction technique was used on this scan by utilizing automated exposure control and iterative recon struction technique. The dose-length product (DLP) was 605.33 mGy-cm. Findings: There is no evidence of intracranial hemorrhage, mass lesion, or acute infarct. The ventri cles and subarachnoid spaces are dilated, consistent with mild atrophy. Low attenuation regions are seen within the periventricular white matter bilaterally, likely representing changes from chronic mi crovascular ischemic disease. There is no evidence of edema, mass effect or midline shift. The visu alized paranasal sinuses and mastoid air cells are clear. Impression: No intracranial hemorrhage, mass, or acute infarct. Atrophy and chronic white matter changes, as above. Reviewed, dictated and finalized at location . ACTORY TILE HELPER Impression: No intracranial hemorrhage, mass, or acute infarct. Atrophy and chronic white matter changes, as above.
--- NOTE | ~2022-11-02 | XR_ITS ---
EXAMINATION: XR chest 1V portable DATE: 11/02/2022 15:09 INDICATION: Confusion. TECHNIQUE: A single frontal view of the chest was obtained on 2 radiographs. COMPARISON: Chest 2 views 09/10/2022 FINDINGS: There is mild atelectasis in the lower lung zones. No pleural effusion or pneumothorax. The heart size is normal. There are old healed left rib fractures. IMPRESSION: 1. Mild atelectasis in the lower lung zones. Reviewed, dictated and finalized at location A. WARE DEVELOPMENT INTERN
--- NOTE | ~2022-11-02 | CT_ITS ---
EXAMINATION: CT abdomen pelvis wo con DATE: 11/03/2022 13:53 INDICATION: Chronic urinary tract infections. TECHNIQUE: Computed tomography (CT) of the abdomen and pelvis was performed without intravenous contr ast. Automated exposure control and iterative reconstruction technique were employed. The dose-length product was 409.32 mGy-cm. COMPARISON: Lumbar spine CT 05/06/2021 FINDINGS: The visualized portions of the lung bases demonstrate mild atelectasis. No pleural effusion . The heart size is normal. There are coronary artery calcifications. No pericardial effusion. There are cysts in the liver measuring up to 12 mm. There are gallstones in the gallbladder, which is davi l in size. The spleen, pancreas, adrenal glands, and kidneys are normal. There is no urolithiasis. Th ere is a moderate-sized sliding hiatal hernia. There are bilateral inguinal hernias containing fat. T here is diverticulosis of the colon without evidence of diverticulitis. There are no dilated loops of bowel. The appendix is normal. There are no pathologically enlarged lymph nodes. There is no free in traperitoneal fluid. There is a total right hip arthroplasty. There are old healed left rib fractures . There is thoracolumbar dextroscoliosis and severe spondylosis. There is a burst fracture of L1 with 1/5 loss of height, retropulsion of bone 2 mm into central spinal canal, and sclerosis suggesting edward valentine new from 05/06/21. There is a fracture of S4 segment of the sacrum with sclerosis suggesting fauzia engel new from 05/06/21. IMPRESSION: 1. No urolithiasis. 2. Moderate-sized sliding hiatal hernia. 3. L1 burst fracture, likely subacute. 4. Sacral fracture, likely subacute. Reviewed, dictated and finalized at location A. FINISHER TAILOR
[2022-11-02 12:30] LABS: Basophils Absolute Auto 0.1 K/mm3 (0.0-0.1); Basophils Percent Auto 0.7 % (0.2-1.2); Eosinophils Percent Auto 0.1 % (0-4.4); Hematocrit 45.5 % (37.0-47.0); Hemoglobin 14.6 g/dL (12.0-15.0); Immature Granulocyte Absolute 0.02 K/mm3 (0.00-0.031); Immature Granulocyte Percent A 0.2 % (0-0.5); Lymphocytes Percent Auto 17.7 % (18.3-44.2); Mean Corpuscular HGB Conc 32.1 g/dl (32-36); Mean Corpuscular Volume 93.6 fl (80-100); Mean Platelet Volume 8.6 fl (7.4-10.4); Monocytes Absolute Auto 0.8 K/mm3 (0.1-0.6); Monocytes Percent Auto 9.2 % (2.6-8.5); Neutrophils Absolute Auto 6.1 K/mm3 (1.3-6.7); Neutrophils Percent Auto 72.1 % (45.5-73.1); Platelet Count Result 298 k/mm3 (150-375); Red Blood Count 4.86 M/mm3 (4.2-5.4); Red Cell Distribution Width 14.5 % (11.5-14.5); White Blood Count 8.5 K/mm3 (4.5-10.0)
[2022-11-02 12:39] LABS: Alanine Aminotransferase 88 U/L (6-35); Albumin Level 4.6 g/dL (3.5-5.1); Alkaline Phosphatase 159 U/L (38-126); Anion Gap 9 mmol/L (8-16); Aspartate Amino Transferase 41 U/L (14-36); Bilirubin,Total 0.7 mg/dL (0.2-1.3); Blood Urea Nitrogen 17 mg/dL (7-17); Calcium 9.6 mg/dL (8.4-10.2); Carbon Dioxide 28 mmol/L (22-30); Chloride 99 mmol/L (98-107); Estimated CRCL calculation 35 ml/min; Estimated Glomerular Filt Rate 60; Glucose 117 mg/dL (65-110); Potassium 3.7 mmol/L (3.4-5.0); Sodium 136 mmol/L (137-145)
--- NOTE | 2022-11-02 14:47 | ECG_ITS ---
Measurements Intervals [place] Rate: 99 P: 35 WV: 156 QRS: -25 QRSD: 82 T: 6 QT: 353 QTc: 453 Interpretive Statements SINUS RHYTHM INFERIOR MYOCARDIAL INFARCTION , PROBABLY OLD [40+ ms Q WAVE AND/OR ST/T ABNORMALITY IN II/aVF] ABNORMAL ECG COMPARED TO ECG 07/12/2022 16:56:27 NO SIGNIFICANT CHANGE Electronically Signed On 11-03-2022 14:41:15 COMMERCIAL REPRESENTATIVE by Ozzie Morataya M.D.
[2022-11-02] MEDS: SODIUM CHLORIDE 0.9% IV 1,000 ML 999 ML IV CONT (15:15)
--- NOTE | 2022-11-02 15:30 | ED.GENADULT ---
HPI - General Adult General Chief complaint: Urogenital-Female Stated complaint: UTI - on antibiotics - confusion Time Seen by Provider: 11/02/22 14:36 History of Present Illness HPI narrative: This is an 87-year-old female presenting ED with chief complaint of confusion. Patient herself does not know why she is here and is asked her daughter to provide all the information. Patient has frequent UTIs and treated 1 week ago with fosfomycin x1. She had been doing well for several days and then when the daughter checked on her today she was confused and altered. She was then brought to emergency room for evaluation. Patient lives at home by herself. Patient is denying all physical complaints. Related Data Home Medications Medication Instructions Recorded Confirmed calcium carbonate 600 mg-vitamin 1 tablet PO DAILY 10/21/19 09/10/22 D3 20 mcg (800 unit) tablet (Caltrate with Vitamin D3) multivitamin (Daily Multi-Vitamin 1 tablet PO DAILY 07/12/20 09/10/22 tablet) acetaminophen 325 mg tablet 650 mg PO .prn PRN pain 02/03/21 09/10/22 (Tylenol) diclofenac sodium 1 % topical gel 2 g topical QID 09/10/22 09/10/22 omeprazole 40 mg capsule,delayed 40 mg PO DAILY 09/10/22 09/10/22 release risedronate 150 mg tablet (Actonel) 150 mg PO ONCE 09/10/22 09/10/22 Allergies Allergy/AdvReac Type Severity Reaction Status Date / Time Quinolones Allergy Intermediate HIVES AND Verified 09/15/22 13:52 JOINT PAIN levofloxacin Allergy Unknown Other Verified 09/15/22 13:52 nitrofurantoin Allergy Unknown Other Verified 09/15/22 13:52 sulfamethizole Allergy Unknown Other Verified 09/15/22 13:52 sulfamethoxazole Allergy Unknown Other Verified 09/15/22 13:52 trimethoprim Allergy Unknown Other Verified 09/15/22 13:52 NITRATE Allergy Intermediate HIVES AND Uncoded 09/15/22 13:28 JOINT PAIN ARTHRITIS MED AdvReac Unknown Other Uncoded 09/15/22 13:28 Review of Systems Review of Systems: CONSTITUTIONAL: Denies night sweats. EYES: No eye pain ENT: Denies rhinorrhea CARDIOVASCULAR: Denies palpitations RESPIRATORY: Denies hemoptysis GASTROINTESTINAL: Denies hematemesis GENITOURINARY: Denies hematuria. SKIN: Denies rash MUSCULOSKELETAL: Denies myalgia. NEUROLOGIC: Denies weakness. PSYCHIATRIC: Denies delusions PMFSH Past Medical History Medical History Hyperlipidemia Recurrent UTI Vitamin D deficiency Surgical History Surgical History History of left knee replacement Family History Family History Father Family history of congenital heart disease Cerebrovascular accident Family history of cardiovascular disease Family history of gout Hypertension Mother Family history of arthritis Family history of lupus erythematosus Other Family history of neuropathy Family history of osteoporosis Social History Social History Smoking status: Former smoker Second hand tobacco smoke exposure: No Alcohol intake: current Drinks per week: 5 Alcohol use details: wine,daily Substance use: never Substance use type: does not use Lack of Transportation: No Lack of Food: Never True Current Housing: I Have Housing Concerned About Future Housing: No Difficulty Paying Gas/Electric Bills: No Difficulty Paying for Meds: No Currently Unemployed: No Education: High School Diploma/GED Difficulty w/ Childcare or Family Care: No Gender identity (if verbalized by the patient): Female Spiritual care concerns: No Agree to blood products: Yes Exam Narrative: APPEARANCE: No apparent distress. Head: atraumatic. EYES: EOMI, NOSE: Atraumatic NECK: Trachea midline RESPIRATORY: No increased rate of breathing , clear to auscultation bilaterally CARDIOVASCULAR: RRR, no per
[2022-11-02 15:41] LABS: Add Urine Microscopic? YES; Appearance Urine Cloudy (Clear); Bilirubin Urine Negative (Negative); Blood Urine Trace-Intact (Negative); Color Urine Yellow (Yellow); Glucose Urine UA Negative (Negative); Ketones Urine 1+ mg/dL (Negative); Leukocyte Esterase Ur 1+ LEU/UL (Negative); Nitrate Urine Positive (Negative); Protein Urine 1+ mg/dL (Negative); Specific Grav Ur 1.025 (1.001-1.035); Urobilinogen Urine 0.2 mg/dL (<2.0)
[2022-11-02 15:54] LABS: Mucus Urine Heavy /lpf; Squamous Epithelial Cell Urine Rare /hpf (Few); WBC Urine 51-75 /hpf
[2022-11-02 15:59] LABS: Influenza A QL RT-PCR Negative (Negative); Influenza B QL RT-PCR Negative (Negative); RSV RNA, RT-PCR Negative (Negative); SARS-CoV-2 RNA PCR Negative
--- NOTE | 2022-11-02 21:16 | PM.IMHP ---
H&P: HPI History of Present Illness Date/Time: 11/02/22 21:16 Chief Complaint: Confusion Narrative: This is an 87-year-old female patient that presented with confusion. Know why she is here and asked her daughter to provide all information. The patient is very hard of hearing. She was doing well for several days when her daughter checked on her today and the daughter checked on her today and she was found to be confused and altered. She was brought to the emergency room to be evaluated. The patient does live home by herself. The patient is a very poor historian. The patient was negative for influenza a B RSV and COVID. Chest x-ray was read as mild atelectasis in the lower lung zones. The patient was found to have a UTI and was started on ceftriaxone. She was also started on IV fluids. The patient is being admitted to inpatient status on the date of service of 11/02/2022 Review of Systems Review of Systems: See HPI All systems reviewed & are unremarkable except as noted in HPI and below Constitutional: Constitutional: Reports as per HPI and Reports no additional constitutional complaints Eyes: Eyes: Reports as per HPI and Reports no additional eye complaints ENT: Reports system reviewed and no additional complaints, except as documented and Reports Normal hearing present Cardiovascular: Cardiovascular: Reports no additional cardiovascular complaints Respiratory: Respiratory: Reports no additional respiratory complaints and Reports no additional respiratory complaints Gastrointestinal: Gastrointestinal: Reports as per HPI and Reports no additional gastrointestinal complaints Musculoskeletal: Musculoskeletal: Reports no additional musculoskeletal complaints Integumentary/Breasts: Skin/Breast: Reports system reviewed and no additional complaints, except as docu and Reports as per HPI Neurologic: Reports system reviewed and no additional complaints, except as documented, Reports as per HPI and Reports Normal hearing present Psychiatric: Psychiatric: Reports no additional psychiatric complaints and Reports as per HPI Endocrine: Endocrine: Reports no additional endocrine complaints Hematologic/Lymphatic: Hematologic/Lymphatic: Reports no additional hematologic/lymphatic complaints Allergic/Immunologic: Allergic/Immunologic: Reports no additional allergic/immunologic complaints [facility] Past Medical History Medical History Hyperlipidemia Recurrent UTI Vitamin D deficiency Surgical History Surgical History (Updated 11/03/22 @ 01:20 by Nichol Campos NP) H/O colonoscopy with polypectomy H/O repair of rotator cuff History of left knee replacement S/P ear surgery Stapes implant Family History Family History Father Family history of congenital heart disease Cerebrovascular accident Family history of cardiovascular disease Family history of gout Hypertension Mother Family history of arthritis Family history of lupus erythematosus Other Family history of neuropathy Family history of osteoporosis Social History Social History (Updated 11/03/22 @ 01:22 by Nichol Campos NP) Social History: The patient lives home alone. She is . She tells me that she has no children however was noted that the patient's daughter was at the bedside earlier. Her power commercial litigation attorney is listed as Jenni choe. The patient is listed as a full code Smoking status: Former smoker Second hand tobacco smoke exposure: No Alcohol intake: current Drinks per week: 5 Alcohol use details: wine,daily Substance use: never Substance use type: does not use Lack of Transportation: No Lack of Food: Never True Current Housing: I Have Housing Concerned About Future Housing: No Difficulty Paying Gas/Electric Bills: No Difficulty Paying for Meds: No Currently Unemployed: No Education: High Scho
--- NOTE | 2022-11-02 21:19 | PC.NURSE ---
Waiting for hospitalist to complete her assessment to take pt upstairs.
--- NOTE | 2022-11-02 22:29 | ADMGEN ---
This patient, Tena Seymour, was admitted to 3 [facility] Surg Room 317-02. Patient/family oriented to hospital policies and general routines including ID bracelet, bed and alarms, visiting hours, pain management, procedures, bathroom and other care routines, personal items, smoking policy, room service/diet, and visiting hours. Information on how to activate the Rapid Response Team has been discussed. Patient/Family are encouraged to report perceived risks to care and to ask questions if they do not understand what they are told or what they should do.
[2022-11-03] MEDS: SODIUM CHLORIDE 0.9% IV 1,000 ML 100 ML IV CONT ×2 (03:43→14:50)
[2022-11-03 06:00] VITALS: BP 147/80; PULSE 79; RESP 18; TEMP 36.6; O2SAT 96
[2022-11-03 07:05] LABS: Basophils Percent Auto 0.6 % (0.2-1.2); Eosinophils Absolute Auto 0.1 K/mm3 (0-0.3); Eosinophils Percent Auto 1.1 % (0-4.4); Hematocrit 41.6 % (37.0-47.0); Immature Granulocyte Absolute 0.02 K/mm3 (0.00-0.031); Immature Granulocyte Percent A 0.3 % (0-0.5); Lymphocytes Absolute Auto 1.97 K/mm3 (0.9-3.2); Lymphocytes Percent Auto 29.7 % (18.3-44.2); Mean Corpuscular HGB Conc 31.3 g/dl (32-36); Mean Corpuscular Hemoglobin 30.2 pg (26-34); Mean Corpuscular Volume 96.5 fl (80-100); Mean Platelet Volume 8.7 fl (7.4-10.4); Monocytes Absolute Auto 0.7 K/mm3 (0.1-0.6); Monocytes Percent Auto 11.2 % (2.6-8.5); Neutrophils Absolute Auto 3.8 K/mm3 (1.3-6.7); Neutrophils Percent Auto 57.1 % (45.5-73.1); Platelet Count Result 275 k/mm3 (150-375); Red Blood Count 4.31 M/mm3 (4.2-5.4); Red Cell Distribution Width 14.5 % (11.5-14.5); White Blood Count 6.6 K/mm3 (4.5-10.0)
[2022-11-03 07:18] LABS: Alanine Aminotransferase 67 U/L (6-35); Albumin Level 4.1 g/dL (3.5-5.1); Alkaline Phosphatase 125 U/L (38-126); Anion Gap 8 mmol/L (8-16); Aspartate Amino Transferase 36 U/L (14-36); Bilirubin,Total 0.8 mg/dL (0.2-1.3); Blood Urea Nitrogen 19 mg/dL (7-17); Calcium 8.5 mg/dL (8.4-10.2); Carbon Dioxide 25 mmol/L (22-30); Chloride 107 mmol/L (98-107); Estimated CRCL calculation 44 ml/min; Estimated Glomerular Filt Rate > 60; Glucose 106 mg/dL (65-110); Lactic Acid Reflex 0.9 mmol/L (0.7-2.0); Magnesium 2.1 mg/dL (1.6-2.3); Potassium 3.4 mmol/L (3.4-5.0); Sodium 140 mmol/L (137-145)
[2022-11-03] MEDS: PREGABALIN (*CRX) 75 MG CAPSULE 150 MG PO ×2 (08:56→21:19)
[2022-11-03] MEDS: POTASSIUM CHLORIDE 20 MEQ PACKET (FOR LIQUID) 40 MEQ PO (08:56)
[2022-11-03] MEDS: ATORVASTATIN 10 MG TABLET PO (08:56)
[2022-11-03] MEDS: MELOXICAM 7.5 MG TABLET PO (08:56)
[2022-11-03 09:08] VITALS: O2SAT 96
--- NOTE | 2022-11-03 13:15 | WPDURCON ---
Assessment and Plan Assessment and plan (1) Acute UTI: Code(s): N39.0 - Urinary tract infection, site not specified Status: Acute (2) Recurrent UTI: Code(s): N39.0 - Urinary tract infection, site not specified Status: Acute Assessment and Plan: CT/KUB ordered to rule out a source of chronic infection. If CT is normal, I recommend daily prophylaxis of Keflex 250mg HS for prevention of UTI's when finished with active course of antibiotics. Patient should f/u as an outpatient for a cystoscopy in the office as well for further evaluation with Dr. Mayes. Urology Consult Note HPI Date Seen: 11/03/22 Time Seen: 13:16 Requesting Physician: Jacob Kwan MD Primary Care Provider: Alejandro Flanagan DO Consult Narrative Reason for consult: Chronic UTI's Narrative: Tena Seymour is a 87 year old female who was admitted for treatment of a UTI d/t acute onset of confusion. She and her niece state her infections started about 6 months ago and she has had 5 infections in 6 months. She states she doesn't have any symptoms such as dysuria, frequency, urgency or hematuria. Her niece states that the only symptom she has is confusion. She has no history of kidney stones and has not seen a urologist previously. Her WBC is 6.6, creatinine is 0.70, UA is suspicious for a UTI. Her niece also states that in the past few months since the infections have started she has been falling more at home. She has had 4 documented UTI's since 06/08/21 all growing E-Coli here at [facility]. The others were on 03/20/22, 07/12/22 and 09/10/22. No imaging has been done of the kidneys or bladder at this point. Review of Systems Cardiovascular: Cardiovascular: Denies chest pain Respiratory: Respiratory: Reports no additional respiratory complaints Gastrointestinal: Gastrointestinal: Denies abdominal pain, Denies nausea and Denies vomiting Genitourinary: Genitourinary: Denies hematuria, Denies nocturia, Denies dysuria, Denies pelvic pain, Denies flank pain, Denies urinary incontinence, Denies urinary hesitancy and Denies urinary urgency PMFSH Past Medical History Medical History Hyperlipidemia Recurrent UTI Vitamin D deficiency Surgical History Surgical History H/O colonoscopy with polypectomy H/O repair of rotator cuff History of left knee replacement S/P ear surgery Stapes implant Family History Family History Father Family history of congenital heart disease Cerebrovascular accident Family history of cardiovascular disease Family history of gout Hypertension Mother Family history of arthritis Family history of lupus erythematosus Other Family history of neuropathy Family history of osteoporosis Social History Social History Social History: The patient lives home alone. She is . She tells me that she has no children however was noted that the patient's daughter was at the bedside earlier. Her power patent attorney is listed as Jenni choe. The patient is listed as a full code Smoking status: Former smoker Second hand tobacco smoke exposure: No Alcohol intake: current Drinks per week: 5 Alcohol use details: wine,daily Substance use: never Substance use type: does not use Lack of Transportation: No Lack of Food: Never True Current Housing: I Have Housing Concerned About Future Housing: No Difficulty Paying Gas/Electric Bills: No Difficulty Paying for Meds: No Currently Unemployed: No Education: High School Diploma/GED Difficulty w/ Childcare or Family Care: No Gender identity (if verbalized by the patient): Female Spiritual care concerns: No Agree to blood products: Yes Meds Home Medications and Allergies Home Medications Me
[2022-11-03 14:00] VITALS: BP 137/68; PULSE 92; RESP 16; TEMP 35.9; O2SAT 97
--- NOTE | 2022-11-03 15:28 | PM.IMPN ---
Progress Note: A&P Assessment and Plan (1) Acute UTI: Code(s): N39.0 - Urinary tract infection, site not specified Status: Acute Assessment and Plan: -the patient has recurrent UTIs. -the patient was refer to urology. The consultation greatly be appreciated. -patient has altered mental status most likely due to the UTI. -the patient was started on ceftriaxone -to the antibiotics to results of cultures. 11/03/2022 interval history: 87-year-old female with history of dementia and confused as well as recurrent UTI was brought emergency department for further evaluate patient urine is suspicious for UTI and being treated with ceftriaxone, patient was seen by Urology for recurrent UTI and to further evaluate patient will have KUB and CT scan and further recommendation to follow, follow-up on urine culture and sensitivity, will have a PT OT evaluate the patient, patient's niece is present in the room and answered all her questions. (2) Acute metabolic encephalopathy: Code(s): G93.41 - Metabolic encephalopathy Status: Acute Assessment and Plan: -most likely related to UTI. -I did order CT of the brain without contrast. -the patient lives home alone and would not be able to take care of herself for this condition. -rehab care assistant has been consulted for rehab. (3) Generalized osteoarthritis: Code(s): M15.9 - Polyosteoarthritis, unspecified Status: Acute Assessment and Plan: Continue with patient's home medications of Tylenol, Voltaren cream, Lyrica and meloxicam (4) Hyperlipidemia: Qualifiers: Hyperlipidemia type: pure hypercholesterolemia Qualified Code(s): E78.00 - Pure hypercholesterolemia, unspecified Code(s): E78.5 - Hyperlipidemia, unspecified Status: Acute Assessment and Plan: Continue with atorvastatin Subjective Date/time seen: 11/03/22 15:28 Chief Complaint: Confusion HPI-Narrative: This is an 87-year-old female patient that presented with confusion.? Know why she is here and asked her daughter to provide all information.? The patient is very hard of hearing.? She was doing well for several days when her daughter checked on her today and the daughter checked on her today and she was found to be confused and altered.? She was brought to the emergency room to be evaluated.? The patient does live home by herself.? The patient is a very poor historian.? The patient was negative for influenza a B RSV and COVID.? Chest x-ray was read as mild atelectasis in the lower lung zones.? The patient was found to have a UTI and was started on ceftriaxone.? She was also started on IV fluids.? The patient is being admitted to inpatient status on the date of service of 11/02/2022 11/03/2022 interval history: 87-year-old female with history of dementia and confused as well as recurrent UTI was brought emergency department for further evaluate patient urine is suspicious for UTI and being treated with ceftriaxone, patient was seen by Urology for recurrent UTI and to further evaluate patient will have KUB and CT scan and further recommendation to follow, follow-up on urine culture and sensitivity, will have a PT OT evaluate the patient, patient's niece is present in the room and answered all her questions. Review of Systems Review of Systems: ROS unobtainable: Yes unobtainable due to mental status Exam Narrative: Patient is comfortable, NAD HEENT: eyes are clear and none icteric LUNGS: normal respiratory effort ABD: distended Lower extremities: no edema SKIN: nonjaundiced Neuro: grossly intact. Objective Data Vital Signs Vital Signs: Vital Signs - 24 hr 11/02/22 16:07 11/02/22 17:03 11/02/22 18:20 Temperature Pulse Rate 96 94 101 H Respiratory Rate 15 15 15 Blood Pressure 162/83 H 158/76 H 142/92 H Pulse Oximetry 98 97 98 Oxygen Delivery 11/02/22 20:19 11/02/22 22:46 11/03/22 00:09 Temperature 98.4 F Pulse Rate 95 80 Respi
[2022-11-03 21:48] VITALS: BP 118/72; PULSE 95; RESP 20; TEMP 36.4; O2SAT 95
[2022-11-04 00:52] VITALS: PULSE 87; RESP 16; O2SAT 95
[2022-11-04 05:56] VITALS: BP 139/62; PULSE 70; RESP 18; TEMP 36.5; O2SAT 99
[2022-11-04] MEDS: SODIUM CHLORIDE 0.9% IV 1,000 ML 100 ML IV CONT ×2 (06:04→16:18)
[2022-11-04] MEDS: ATORVASTATIN 10 MG TABLET PO (08:18)
[2022-11-04] MEDS: MELOXICAM 7.5 MG TABLET PO (08:18)
[2022-11-04] MEDS: PREGABALIN (*CRX) 75 MG CAPSULE 150 MG PO ×2 (08:18→21:03)
[2022-11-04] MEDS: traMADol HCL (*CRX) 50 MG TABLET PO (08:18)
[2022-11-04 08:42] LABS: Hematocrit 39.9 % (37.0-47.0); Hemoglobin 12.4 g/dL (12.0-15.0); Mean Corpuscular HGB Conc 31.1 g/dl (32-36); Mean Corpuscular Hemoglobin 29.9 pg (26-34); Mean Corpuscular Volume 96.1 fl (80-100); Mean Platelet Volume 8.7 fl (7.4-10.4); Platelet Count Result 276 k/mm3 (150-375); Red Blood Count 4.15 M/mm3 (4.2-5.4); Red Cell Distribution Width 14.6 % (11.5-14.5); White Blood Count 5.5 K/mm3 (4.5-10.0)
[2022-11-04 08:57] LABS: Anion Gap 6 mmol/L (8-16); Blood Urea Nitrogen 14 mg/dL (7-17); Calcium 8.6 mg/dL (8.4-10.2); Carbon Dioxide 26 mmol/L (22-30); Chloride 111 mmol/L (98-107); Estimated CRCL calculation 44 ml/min; Estimated Glomerular Filt Rate > 60; Glucose 95 mg/dL (65-110); Potassium 3.8 mmol/L (3.4-5.0); Sodium 143 mmol/L (137-145)
[2022-11-04 14:00] VITALS: BP 139/68; PULSE 77; RESP 14; TEMP 36.6; O2SAT 96
--- NOTE | 2022-11-04 17:13 | PM.IMPN ---
Progress Note: A&P Assessment and Plan (1) Acute UTI: Code(s): N39.0 - Urinary tract infection, site not specified Status: Acute Assessment and Plan: -the patient has recurrent UTIs. -the patient was refer to urology. The consultation greatly be appreciated. -patient has altered mental status most likely due to the UTI. -the patient was started on ceftriaxone -to the antibiotics to results of cultures. 11/04/2022 interval history: 87-year-old female with history of dementia and confused as well as recurrent UTI was brought emergency department for further evaluate patient urine is suspicious for UTI, and growing E coli and and sensitive ceftriaxone, being treated with ceftriaxone, patient was seen by Urology for recurrent UTI and to further evaluate patient had CT scan, which is essentially normal, and further recommendation to follow, will have a PT OT evaluate the patient, on 11/03 patient's niece was present in the room and answered all her questions. (2) Acute metabolic encephalopathy: Code(s): G93.41 - Metabolic encephalopathy Status: Acute Assessment and Plan: -most likely related to UTI. -I did order CT of the brain without contrast. -the patient lives home alone and would not be able to take care of herself for this condition. -care transitions nurse has been consulted for rehab. (3) Generalized osteoarthritis: Code(s): M15.9 - Polyosteoarthritis, unspecified Status: Acute Assessment and Plan: Continue with patient's home medications of Tylenol, Voltaren cream, Lyrica and meloxicam (4) Hyperlipidemia: Qualifiers: Hyperlipidemia type: pure hypercholesterolemia Qualified Code(s): E78.00 - Pure hypercholesterolemia, unspecified Code(s): E78.5 - Hyperlipidemia, unspecified Status: Acute Assessment and Plan: Continue with atorvastatin Subjective Date/time seen: 11/04/22 17:13 11/04/2022 interval history: 87-year-old female with history of dementia and confused as well as recurrent UTI was brought emergency department for further evaluate patient urine is suspicious for UTI, and growing E coli and and sensitive ceftriaxone, being treated with ceftriaxone, patient was seen by Urology for recurrent UTI and to further evaluate patient had CT scan, which is essentially normal, and further recommendation to follow, will have a PT OT evaluate the patient, on 11/03 patient's niece was present in the room and answered all her questions. Review of Systems Review of Systems: All systems reviewed & are unremarkable except as noted in HPI and below Exam Narrative: Patient is comfortable, NAD HEENT: eyes are clear and none icteric LUNGS: normal respiratory effort ABD: distended Lower extremities: no edema SKIN: nonjaundiced Neuro: grossly intact. Objective Data Vital Signs Vital Signs: Vital Signs - 24 hr 11/03/22 21:48 11/04/22 00:52 11/04/22 05:56 Temperature 97.6 F 97.7 F Pulse Rate 95 87 70 Respiratory Rate 20 16 18 Blood Pressure 118/72 139/62 Pulse Oximetry 95 95 99 Oxygen Delivery Room Air 11/04/22 08:30 11/04/22 14:00 Temperature 98 F Pulse Rate 77 Respiratory Rate 14 Blood Pressure 139/68 Pulse Oximetry 96 Oxygen Delivery Room Air Intake/Output Intake/Output: Intake & Output 11/01/22 11/02/22 11/03/22 11/04/22 23:59 23:59 23:59 23:59 Intake Total 1050 2300 2480 Output Total 200 925 850 Balance 850 1375 1630 Meds/Results Medications: Active Medications Generic Name Dose Route Start Last Admin Trade Name Freq PRN Reason Stop Dose Admin Acetaminophen 650 mg 11/03/22 01:22 Acetaminophen 325 Mg Tablet PO Q6H PRN Pain Rated 1-3 Atorvastatin Calcium 10 mg 11/03/22 09:00 11/04/22 08:18 Atorvastatin 10 Mg Tablet PO 10 mg DAILY LAURA Administration Diclofenac Sodium 1 applic 11/03/22 01:22 Diclofenac Sodium 1% 100 Gm Gel (*Bkc) TOPICAL QID
[2022-11-04 20:30] VITALS: BP 125/46; PULSE 89; RESP 12; TEMP 37.2; O2SAT 93
[2022-11-04 22:40] VITALS: PULSE 80; O2SAT 97
[2022-11-05] MEDS: SODIUM CHLORIDE 0.9% IV 1,000 ML 100 ML IV CONT (03:05)
[2022-11-05 06:00] VITALS: BP 134/58; PULSE 71; RESP 18; TEMP 36.7; O2SAT 94
[2022-11-05 07:41] LABS: Hematocrit 42.4 % (37.0-47.0); Hemoglobin 13.3 g/dL (12.0-15.0); Mean Corpuscular HGB Conc 31.4 g/dl (32-36); Mean Corpuscular Hemoglobin 30.1 pg (26-34); Mean Corpuscular Volume 95.9 fl (80-100); Mean Platelet Volume 8.8 fl (7.4-10.4); Platelet Count Result 299 k/mm3 (150-375); Red Blood Count 4.42 M/mm3 (4.2-5.4); Red Cell Distribution Width 14.6 % (11.5-14.5)
[2022-11-05 07:53] LABS: Anion Gap 7 mmol/L (8-16); Blood Urea Nitrogen 16 mg/dL (7-17); Calcium 9.1 mg/dL (8.4-10.2); Carbon Dioxide 26 mmol/L (22-30); Chloride 108 mmol/L (98-107); Estimated CRCL calculation 44 ml/min; Estimated Glomerular Filt Rate > 60; Glucose 86 mg/dL (65-110); Magnesium 2.1 mg/dL (1.6-2.3); Sodium 141 mmol/L (137-145)
[2022-11-05] MEDS: ATORVASTATIN 10 MG TABLET PO (08:19)
[2022-11-05] MEDS: traMADol HCL (*CRX) 50 MG TABLET PO (08:19)
[2022-11-05] MEDS: PREGABALIN (*CRX) 75 MG CAPSULE 150 MG PO ×2 (08:19→20:32)
[2022-11-05] MEDS: MELOXICAM 7.5 MG TABLET PO (08:19)
--- NOTE | 2022-11-05 11:40 | PM.IMPN ---
Progress Note: A&P Assessment and Plan (1) Acute UTI: Code(s): N39.0 - Urinary tract infection, site not specified Status: Acute Assessment and Plan: Recurrent UTIs, appreciate urology consultation, urine culture came back positive for E coli sensitive to Rocephin, antibiotics started November 02, today is day 4 Will discharge on prophylactic Keflex 250 mg q.h.s. per Urology recommendations (2) Acute metabolic encephalopathy: Code(s): G93.41 - Metabolic encephalopathy Status: Acute Assessment and Plan: Improving, appreciate care coordination consultation, PT/OT both recommending home with home healthcare (3) Generalized osteoarthritis: Code(s): M15.9 - Polyosteoarthritis, unspecified Status: Acute Assessment and Plan: Continue with patient's home medications of Tylenol, Voltaren cream, Lyrica and meloxicam (4) Hyperlipidemia: Qualifiers: Hyperlipidemia type: pure hypercholesterolemia Qualified Code(s): E78.00 - Pure hypercholesterolemia, unspecified Code(s): E78.5 - Hyperlipidemia, unspecified Status: Acute Assessment and Plan: Continue with atorvastatin Plan DVT prophylaxis with SCDs GI prophylaxis not indicated Code status full code Subjective Date/time seen: 11/05/22 11:40 Interval history: No overnight events noted. No chest pain or shortness of breath. No nausea, vomiting or diarrhea. No fevers or chills. Review of Systems Review of Systems: 12 point review of systems was assessed and was negative except as noted in the HPI Exam Narrative: General: No acute distress, alert and oriented per baseline HEENT: Atraumatic, normocephalic, mucous membranes moist CV: Regular rate and rhythm, S1, S2 Lungs: Clear to auscultation bilaterally, no rales or crackles noted, no wheezes, good air entry Abdomen: Soft, nontender, nondistended Extremities: Normal to inspection Skin: No rashes noted, no lesions or wounds seen Psych: Euthymic, normal affect Objective Data Vital Signs Vital Signs: Vital Signs - 24 hr 11/04/22 14:00 11/04/22 20:30 11/04/22 22:40 Temperature 98 F 98.9 F Pulse Rate 77 89 80 Respiratory Rate 14 12 Blood Pressure 139/68 125/46 L Pulse Oximetry 96 93 97 Oxygen Delivery 11/05/22 06:00 11/05/22 08:00 Temperature 98.1 F Pulse Rate 71 Respiratory Rate 18 Blood Pressure 134/58 L Pulse Oximetry 94 Oxygen Delivery Room Air Intake/Output Intake/Output: Intake & Output 11/02/22 11/03/22 11/04/22 11/05/22 23:59 23:59 23:59 23:59 Intake Total 1050 2350 3270 1622 Output Total 182 786 3144 Balance 850 1425 2020 1622 Meds/Results Medications: Active Medications Generic Name Dose Route Start Last Admin Trade Name Freq PRN Reason Stop Dose Admin Acetaminophen 650 mg 11/03/22 01:22 Acetaminophen 325 Mg Tablet PO Q6H PRN Pain Rated 1-3 Atorvastatin Calcium 10 mg 11/03/22 09:00 11/05/22 08:19 Atorvastatin 10 Mg Tablet PO 10 mg DAILY LAURA Administration Diclofenac Sodium 1 applic 11/03/22 01:22 Diclofenac Sodium 1% 100 Gm Gel (*Bkc) TOPICAL QID PRN Pain Ceftriaxone Sodium/Dextrose 1 gm in 50 mls @ 100 mls/hr 11/03/22 20:00 11/04/22 21:03 Rocephin 1 Gm/D5w 50 Ml IVPB 100 mls/hr Q24H LAURA Administration Sodium Chloride 1,000 mls @ 100 mls/hr 11/03/22 01:15 11/05/22 03:05 Normal Saline Iv IV CONT 100 mls/hr .Q10H LAURA Administration Meloxicam 7.5 mg 11/03/22 08:00 11/05/22 08:19 Meloxicam 7.5 Mg Tablet PO 7.5 mg DAILY@0800 LAURA Administration Pregabalin 150 mg 11/03/22 09:00 11/05/22 08:19 Pregabalin (*Crx) 75 Mg Capsule PO 150 mg Q12HR LAURA Administration Tramadol HCl 50 mg 11/03/22 01:22 11/05/22 08:19 Tramadol Hcl (*Crx) 50 Mg Tablet PO 50 mg BID PRN Administration Pain Rated 4-6 Radiology Results: ITS Impressions Chest X-Ray 11/02/22 15:18 SIVAIO
[2022-11-05 14:00] VITALS: BP 111/58; PULSE 95; RESP 20; TEMP 36.3; O2SAT 96
[2022-11-05 21:39] VITALS: BP 122/53; PULSE 74; RESP 18; TEMP 36.6; O2SAT 94
[2022-11-06 05:52] VITALS: BP 164/77; PULSE 78; RESP 18; TEMP 36.3; O2SAT 96
[2022-11-06 07:10] LABS: Hematocrit 37.6 % (37.0-47.0); Hemoglobin 12.3 g/dL (12.0-15.0); Mean Corpuscular HGB Conc 32.7 g/dl (32-36); Mean Corpuscular Hemoglobin 30.2 pg (26-34); Mean Corpuscular Volume 92.4 fl (80-100); Mean Platelet Volume 8.4 fl (7.4-10.4); Platelet Count Result 273 k/mm3 (150-375); Red Blood Count 4.07 M/mm3 (4.2-5.4); Red Cell Distribution Width 14.2 % (11.5-14.5); White Blood Count 5.9 K/mm3 (4.5-10.0)
[2022-11-06 07:28] LABS: Anion Gap 3 mmol/L (8-16); Blood Urea Nitrogen 18 mg/dL (7-17); Calcium 8.7 mg/dL (8.4-10.2); Carbon Dioxide 31 mmol/L (22-30); Chloride 103 mmol/L (98-107); Estimated CRCL calculation 39 ml/min; Estimated Glomerular Filt Rate > 60; Glucose 89 mg/dL (65-110); Potassium 3.6 mmol/L (3.4-5.0); Sodium 137 mmol/L (137-145)
--- NOTE | 2022-11-06 08:28 | PM.DS ---
DS: Admitting Diagnosis Discharge Date 11/06/2022 Admitting Diagnosis Altered mental status DS: Discharge Diagnosis Discharge Diagnosis (1) Acute UTI: Code(s): N39.0 - Urinary tract infection, site not specified Status: Acute Assessment and Plan: Recurrent UTIs, appreciate urology consultation, urine culture came back positive for E coli sensitive to Rocephin, antibiotics started November 02, today is day 4 Will discharge on prophylactic Keflex 250 mg q.h.s. per Urology recommendations (2) Acute metabolic encephalopathy: Code(s): G93.41 - Metabolic encephalopathy Status: Acute Assessment and Plan: Improving, appreciate care coordination consultation, PT/OT both recommending home with home healthcare (3) Generalized osteoarthritis: Code(s): M15.9 - Polyosteoarthritis, unspecified Status: Acute Assessment and Plan: Continue with patient's home medications of Tylenol, Voltaren cream, Lyrica and meloxicam (4) Hyperlipidemia: Qualifiers: Hyperlipidemia type: pure hypercholesterolemia Qualified Code(s): E78.00 - Pure hypercholesterolemia, unspecified Code(s): E78.5 - Hyperlipidemia, unspecified Status: Acute Assessment and Plan: Continue with atorvastatin Plan DVT prophylaxis with SCDs GI prophylaxis not indicated Code status full code DS: Summary Hospital Course Hospital Course: 87-year-old female with past medical history for recurrent UTIs, vitamin-D deficiency and hyperlipidemia is presenting with altered mental status. She was admitted and started on Rocephin and completed a 5 day course of IV Rocephin. Urology was consulted and recommended prophylaxis for UTIs with Keflex 250 mg q.h.s. at discharge. They also did a CT urogram to rule chronic infection in her planning outpatient cystoscopy. Patient was discharged in good condition on Keflex 250 mg q.h.s. with close outpatient follow-up by Urology. Time Spent with Patient Time attestation: Total time spent providing and/or coordinating discharge services: Exam Narrative: General: No acute distress, alert and oriented per baseline HEENT: Atraumatic, normocephalic, mucous membranes moist CV: Regular rate and rhythm, S1, S2 Lungs: Clear to auscultation bilaterally, no rales or crackles noted, no wheezes, good air entry Abdomen: Soft, nontender, nondistended Extremities: Normal to inspection Skin: No rashes noted, no lesions or wounds seen Psych: Euthymic, normal affect DS: Data Data Completed and Pending Labs on day of discharge: Labs from last 24 hours 11/06/22 11/06/22 07:04 07:03 WBC 5.9 RBC 4.07 L Hgb 12.3 Hct 37.6 MCV 92.4 MCH 30.2 MCHC 32.7 RDW 14.2 Plt Count 273 MPV 8.4 Sodium 137 Potassium 3.6 Chloride 103 Carbon Dioxide 31 H Anion Gap 3 L BUN 18 H Creatinine 0.80 Estim Creat Clear Calc 39 Estimated GFR > 60 Glucose 89 Calcium 8.7 Magnesium 2.0 Preliminary micro results at discharge 11/02/22 19:45 Blood Culture - Preliminary Blood 11/02/22 19:45 Blood Culture - Preliminary Blood 11/02/22 22:19 Blood Culture - Preliminary Blood 11/02/22 22:19 Blood Culture - Preliminary Blood Discharge Plan Discharge Attending physician on discharge: Joana Kumar Consulting providers: Arpan Marina Discharging Clinician: Joana Kumar Patient Disposition: Home, Self-Care Activity: as tolerated Diet: as tolerated Patient Instructions: Antibiotic Form, Urinary Tract Infection in Women (DC), Urinary Urgency and Frequency (DC), Urinary Tract Infection in Older Adults (DC) Stand Alone Forms: General Discharge Information Follow-up/Referrals: Baltazar Mayes MD [Physician] - Discharge Medications: New cephalexin 250 mg capsule 250 mg PO HS 30 Days Qty: 30 0RF Continued acetaminophen [Tylenol] 325 mg tablet 650 mg PO .prn PRN (Reaso
[2022-11-06 08:30] VITALS: O2SAT 97
[2022-11-06] MEDS: ATORVASTATIN 10 MG TABLET PO (09:41)
[2022-11-06] MEDS: MELOXICAM 7.5 MG TABLET PO (09:41)
[2022-11-06] MEDS: PREGABALIN (*CRX) 75 MG CAPSULE 150 MG PO (09:42)
[2022-11-06] MEDS: PHARMACIST COMMUNICATION ORDER 1 EACH XX (11:41)
== END 2022-11-06 12:45 | disposition home or self-care (01) | DRG 689 ==
LOC: ANHED 17:10 → ANH3MEDSUR 21:13
PROVIDERS: Family Medicine; Nurse Practitioner; Admitting Provider Internal Medicine; Emergency Provider Emergency Medicine; PCP Family Medicine; Visit Provider Student in an Organized Health Care Education/Training Program
DX: N39.0 Urinary tract infection, site not specified (principal); G93.41 Metabolic encephalopathy; E78.5 Hyperlipidemia, unspecified; E55.9 Vitamin D deficiency, unspecified; Z96.652 Presence of left artificial knee joint; Z20.822 Contact with and (suspected) exposure to COVID-19; M15.9 Polyosteoarthritis, unspecified; R29.6 Repeated falls; B96.20 Unspecified Escherichia coli [E. coli] as the cause of diseases classified elsewhere
CPT/HCPCS: 36415; 51701; 70450; 71045; 74018; 74176; 80048; 80053; 81001; 83605; 83735; 84443; 85025; 85027; 87040; 87077; 87086; 87186; 87637; 93005; 96360; 96361; 97110; 97161; 97165; 97530; 99285; A9270; J0696; J7030